=== PATIENT | male | born 1955 | race Caucasian/White ===

== ENCOUNTER → 2016-11-09 11:17 | Outpatient (CLI) | payer OTHER ==
[~2016-11-09] VITALS: Ht 170.2 cm; Wt 82.7 kg
--- NOTE | ~2016-11-09 | HEMODYNAMI ---
PATIENT:EVELYNE KNOTT MEDICAL RECORD: [id number] : 57 LOCATION:[facility] ADMISSION DATE: 11/09/16 Generatedon:11/09/201615:56 Patient name: EVELYNE KNOTT Patient #: [id number] SSN: : 1955 Date of study: 11/09/2016 Page: Of Hemodynamic Procedure Report Patient Data Patient Demographics Procedure consent was obtained First Name: EVELYNE Gender: Male Last Name: NIKOS : 1955 Patient #: [id number] Age: 61 year(s) Race: Unknown Additional ID: [id number] Contact details Address: [address] State: [place] City: [place] Zip code: [address] Admission Admission Data Admission Date: 11/09/2016 Admission Time: 11:17 Procedure Procedure Types Cath Procedure Diagnostic Procedure LHC LHC w/Coronaries Miscellaneous Procedures Moderate Sedation up to 15 minutes Procedure Description Procedure Date Procedure Date: 11/09/2016 Procedure Start Time: 15:39 Procedure End Time: 15:56 Procedure Staff Name Function Jayden Sommers MD Performing Physician Sowmya Hancock RN Nurse Jose Mesa RT Monitor Candido Murillo RT Scrub Procedure Data Cath Procedure Fluoroscopy Diagnostic fluoroscopy Total fluoroscopy Time: 3.6 time: 3.6 min min Diagnostic fluoroscopy Total fluoroscopy dose: 634 dose: 634 mGy mGy Contrast Material Contrast Material Type Amount (ml) Isovue 300 75 Entry Location Entry Primary Successful Side Size Upsize Upsize Entry Closure Robbins ccessful Closure Location (Fr) 1 (Fr) 2 (Fr) Remarks Device Remarks Radial Right 6 Fr Mechanical artery Short Compression Estimated blood loss: 10 ml Diagnostic catheters Device Type Used For End Catheter Placement Terumo 5Fr Tay 110cm Procedure catheter Procedure Complications No complications Procedure Medications Medication Administration Route Dosage Oxygen NC 2 l/min Heparin Flush Bag added to field 2 bags (1000units/500ml NS) Lidocaine 2% added to field 20 Radial Cocktail added to field 1 syringe (Verapomil 2mg/Nitro 400mcg/Heparin 1500units) Versed I.V. 1 mg Fentanyl I.V. 50 mcg Versed I.V. 1 mg Fentanyl I.V. 50 mcg Versed I.V. 1 mg Fentanyl I.V. 50 mcg Radial Cocktail added to field 1 syringe (Verapomil 2mg/Nitro 400mcg/Heparin 1500units) Hemodynamics Rest Heart Rate: 60 (bpm) Pressure Samples Time Site Value (mmHg) Purpose Heart Use Rate(bpm) 15:43 LV 126/-2,8 Snapshot 80 15:46 AO 111/70(88) Snapshot 76 Gradients Valve Time Site Site Mean SEP/DFP Peak To Heart Use 1 2 (mmHg) (sec/min) Peak Rate (mmHg) (bpm) Aortic 15:43 LV AO 64 Snapshots Pre Cath Intra NCS Post Cath Vital Signs Time Heart Resp SPO2 etCO2 [id number] NIBP (mmHg) Rhythm Pain Sedation Rate (ipm) (%) (mmHg) (mmHg) Status Level (bpm) 15:28:09 63 17 100 0 0 150/78(106) NSR 0 (11) 10(A) , No pain 15:32:29 65 13 99 0 0 145/85(116) NSR 0 (11) 10(A) , No pain 15:36:47 62 16 100 0 0 131/82(94) NSR 0 (11) 10(A) , No pain 15:41:03 73 16 100 0 0 109/72(86) NSR 0 (11) 9(A) , No pain 15:45:11 71 15 99 0 0 103/68(87) NSR 0 (11) 9(A) , No pain 15:49:19 79 15 100 0 0 109/65(81) NSR 0 (11) 9(A) , No pain 15:53:25 72 9 100 0 0 127/75(85) NSR 0 (11) 9(A) , No pain Medications Time Medication Route Dose Verified Delivered Reason Notes Effectiveness by by 15:27:18 Oxygen NC 2 l/min Jayden Sowmya Per Matthieu Hancock RN physician 15:27:30 Heparin Flush added 2 bags Jayden Jayden used for Bag to Matthieu Sommers MD procedure (1000units/500ml field NS) 15:27:41 Lidocaine 2% added 20ml Jayden Jayden used for to vial Matthieu Sommers MD procedure field 15:27:51 Radial Cocktail added 1 Jayden Jayden used for (Verapomil to syringe Matthieu Sommers MD procedure 2mg/Nitro field 400mcg/Heparin 1500units) 15:32:03 Versed I.V. 1 mg Jayden Sowmya for sedation Matthieu Hancock RN 15:32:09 Fentanyl I.V. 50 mcg Jayden Sowmya for sedation Matthieu Hancock RN 15:34:13 Versed I.V. 1 mg Jayden Sowmya for sedation Matthieu Hancock RN 15:34:23 Fentanyl I.V. 50 mcg Jayden Sowmya for sedation Matthieu Hancock RN 15:36:30 Versed I.V. 1 mg Jayden Sowmya for sedation Matthieu Hancock RN 15:36:35 Fentanyl I.V. 50 mcg Jayden Sowmya for sedation Matthieu Hancock RN 15:40:24 Radial Cocktail added 1 Jayden Jayden for (Verapomil to syringe Matthieu Sommers MD vasodilation 2mg/Nitro field 400mcg/Heparin 1500units) Procedure Log Time Note 14:55:03 Candido Murillo RT(R) sent for patient. Start room use. 15:16:42 Time tracking: Regular hours 15:16:47 Plan of Care:Hemodynamics will remain stable., Cardiac rhythm will remain stable., Comfort level will be maintained., Respiratory function will remain adequate., Patient/ family verbilizes understanding of procedure., Procedure tolerated without complication., Recovers from procedure without complications.. 15:17:02 Patient received from Pre/Post Procedure Room to CCL 1 Alert and oriented. Tansferred to table in Supine position. 15:17:03 Warm blankets applied, and alma hugger turned on for patient comfort. 15:17:04 Correct patient and procedure confirmed by team. 15:17:05 Signed procedure consent form obtained from patient. 15:17:06 ECG and BP/O2 sat monitors applied to patient. 15:27:04 Vital chart was started 15:27:18 Oxygen 2 l/min NC was administered by Sowmya Hancock RN; Per physician; 15:27:30 Heparin Flush Bag (1000units/500ml NS) 2 bags added to field was administered by Jayden Sommers MD; used for procedure; 15:27:41 Lidocaine 2% 20ml vial added to field was administered by Jayden Sommers MD; used for procedure; 15:27:51 Radial Cocktail (Verapomil 2mg/Nitro 400mcg/Heparin 1500units) 1 syringe added to field was administered by Jayden Sommers MD; used for procedure; 15:29:10 Baseline sample Acquired. 15:29:15 Rhythm: sinus rhythm 15:29:16 Full Disclosure recording started 15:29:24 H&P Date Dictated: 11/01/2016 Within 30 days and on chart., H&P Addendum completed by physician on day of procedure. (MUST COMPLETE FOR ALL OUTPATIENTS). 15:29:25 Pre-procedure instructions explained to patient. 15:29:25 Pre-op teaching completed and patient verbalized understanding. 15:29:27 Family in waiting room. 15:29:30 Patient NPO since Midnight. 15:29:32 Is the patient allergic to Iodine/contrast media? No. 15:29:33 Is patient on blood thinner?Yes 15:29:37 ACC The patient was administered the following blood thiners within the last 24 hours: ACCBrilinta 15:30:46 Patient diabetic? No. 15:30:49 Previous problem with sedation/anesthesia? No ? 15:30:51 Snore? Yes 15:30:53 Sleep apnea? No 15:30:55 Deviated septum? No 15:30:55 Opens mouth fully? Yes 15:30:56 Sticks out tongue? Yes 15:31:01 Airway obstruction? No ? 15:31:03 Dentures? Yes IN 15:31:07 Pre procedure: right dorsailis pedis pulse 1+ Palpable, but thready & weak; easily obliterated 15:31:10 Modified Van's test Ulnar < 7 seconds 15:31:12 Patient pain scale 0/10 ?. 15:31:18 IV patent on arrival in left forearm with 0.9% NaCl at KVO. 15:31:21 Lab results completed and on chart. 15:31:27 Right Radial & Right Groin area was prepped with chlora-prep and draped in sterile fashion 15::29 Alarms reviewed by RBertha N. 15:31:29 Sharps counted by scrub and verified by R.N. 15:: --------ALL STOP TIME OUT------ : Final Timeout: patient, procedure, and site verified with staff and physician. All members of the team are in agreement. 15:31:37 Right Radial & Right Groin site verified by team. 15:31:40 Physical assessment completed. ASA score P 2 - A patient with mild systemic disease as per Jayden Sommers MD. 15:31:43 Sedation plan: IV Moderate Sedation Versed, Fentanyl 15:32:03 Versed 1 mg I.V. was administered by Sowmya Hancock RN; for sedation; 15:32:09 Fentanyl 50 mcg I.V. was administered by Sowmya Hancock RN; for sedation; 15:34:13 Versed 1 mg I.V. was administered by Sowmya Hancock RN; for sedation; 15:34:23 Fentanyl 50 mcg I.V. was administered by Sowmya Hancock RN; for sedation; 15:35:08 Use device set Radial Dx 15:35:11 Tegaderm 4 x 4 opened to sterile field. 15:35:13 Acist Hand Control opened to sterile field. 15:35:13 Acist Manifold opened to sterile field. 15:35:14 Acist Syringe opened to sterile field. 15:35:15 Medline Cath Pack opened to sterile field. 15:35:15 Bag Decanter opened to sterile field. 15:35:15 Terumo 6Fr Slender Glidesheath opened to sterile field. 15:35:16 St Shashank 260cm J .035 wire opened to sterile field. 15:35:16 MBrace Wrist Support opened to sterile field. 15:35:47 Cook 21G 4cm Radial Needle opened to sterile field. 15:36:30 Versed 1 mg I.V. was administered by Sowmya Hancock RN; for sedation; 15:36:35 Fentanyl 50 mcg I.V. was administered by Sowmya Hancock RN; for sedation; 15:38:56 Procedure started. 15:39:01 Local anesthetic to right radial artery with Lidocaine 2% by Jayden Sommers MD.INITIAL ACCESS ONLY 15:40:14 A 6 Fr Short sheath was inserted into the Right Radial artery 15:40:24 Radial Cocktail (Verapomil 2mg/Nitro 400mcg/Heparin 1500units) 1 syringe added to field was administered by Jayden Sommers MD; for vasodilation; 15:40:32 Zero performed for pressure channel P1 15:40:38 Zero performed for pressure channel P1 15:41:04 A Terumo 5Fr Tay 110cm catheter was advanced over the wire and used for Procedure. 15:42:51 LV angiography performed. 15:42:52 LV gram done using ALEXIS 15:43:08 LV hemodynamics recorded. 15:43:12 Injector settings: Ml/sec: 7, Volume: 15, 15:43:20 EF : 55 % 15:44:12 RCA angiography performed. 15:46:49 LCA angiography performed. 15:48:28 Catheter removed. 15:52:07 Terumo TR Band Standard opened to sterile field. 15:53:14 Sheath removed intact; hemostasis achieved with Mechanical Compression to the Right Radial artery. 15:53:21 Procedure ended.(Physican Out) 15:53:59 Fluoroscopy time 03.60 minutes. 15:54:03 Fluoroscopy dose: 634 mGy 15:54:03 Flurop Dose total: 634 15:54:07 Contrast amount:Isovue 300 75ml. 15:54:09 Sharps counted by scrub and verified by R.N. 15:54:11 Insertion/operative site no bleeding no hematoma. 15:54:29 Post-op/insertion site Right Femoral artery dressed using a 4 x 4 and Tegaderm. 15:54:31 Post Procedure Pulses reassessed and unchanged 15:54:34 Post-procedure physical assessment completed. ASA score P 2 - A patient with mild systemic disease as per Jayden Sommers MD. 15:54:36 Post procedure rhythm: unchanged. 15:54:39 Estimated blood loss: 10 ml 15:54:42 Post procedure instruction explained to patient.Patient verbalizes understanding. 15:54:43 Patient needs reinforcement of post procedure teaching. 15:55:11 Procedure Complication : No complications 15:55:28 Procedure and supply charges have been captured, reviewed, submitted and are correct. 15:55:53 Vital chart was stopped 15:55:54 See physician's report for complete and final results. 15:55:58 Report given to Pre/Post Procedure Room. 15:56:02 Patient transfered to Pre/Post Procedure Room with Stretcher. 15:56:04 Procedure ended. 15:56:04 Full Disclosure recording stopped 15:56:25 End room use (Document Last) Device Usage Item Name Manufacture Quantity Catalog Hospital Part Current Minimal Lot# / Number Charge Number Stock Stock Serial# Code Tegaderm 4 1 [id number] [id number] 5 x 4 Acist Hand Acist 1 66434 301011 598946 289701 5 Control [employer] Inc Acist Acist 1 20701 759786 768914 476921 5 Manifold [employer] Inc Acist Acist 1 19769 078380 696094 490368 20 Syringe Medical [employer] Inc Medline Cardinal 1 [id number] 070554 68281 024857 5 Cath Pack Health Bag Microtek 1 2001S 606959 15512 157322 5 Decanter [employer] Inc. Terumo 6Fr Terumo 1 [id number] 600485 698435 [address] St Shashank 1 945936 428750 634496 305579 30 260cm J .035 wire MBrace Advanced 1 [id number] 517668 02865 236008 5 Wrist Vascular Support Dynamics Cook 21G Cook Medical 1 [id number] 989595 731056 257716 5 4cm Radial Needle Terumo 5Fr Terumo 1 40-4280 040683 836276 487373 5 Tay 110cm catheter Terumo TR Terumo 1 [id number] 682344 037757 804802 40 Band Standard Signature Audit Roxie Stage Time Signature Unsigned Intra-Procedure 11/09/2016 Jose Mesa 3:56:43 PM RT(R) Signatures Monitor : Jose Mesa RT Signature : Date : Time : [facility] [address] [place] [address]
[~2016-11-09 11:17] MED LIST: BAYER CHEWABLE81 MG PO; BRILINTA90 MG PO; LIPITOR80 MG PO; LISINOPRIL10 MG PO; PREVACID30 MG PO; RANEXA500 MG PO
[2016-11-09 11:37] VITALS: BP 146/77; Ht 170.2 cm; Wt 82.7 kg
[2016-11-09 11:53] LABS: BASOPHILS 0.7 % (0-2); EOSINOPHILS 3.4 % (0-7); HEMATOCRIT 46.5 % (42.0-54.0); HEMOGLOBIN 15.1 g/dL (13.5-17.5); IMMATURE GRANULOCYTES 0.1 % (0-5); LYMPHOCYTES 27.3 % (15-50); MCH 28.9 pg (26.0-34.0); MCHC 32.5 g/dL (31.0-37.0); MCV 88.9 fL (80.0-100.0); MEAN PLATELET VOLUME 10.8 fL (7.4-10.4); MONOCYTES 8.7 % (2-11); NEUTROPHILS 59.8 % (40-80); PLATELET COUNT 227 10x3/uL (130-400); RBC 5.23 10x6/uL (4.20-6.10); RDW 13.4 % (11.5-14.5); WBC 8.6 10x3/uL (4.8-10.8)
[2016-11-09 12:15] LABS: CALC OSMOLALITY 278 mosm/kg (275-300); CALCIUM 9.1 mg/dL (8.5-10.1); CARBON DIOXIDE 31.5 mmol/L (21.0-32.0); CHLORIDE - SERUM 104 mmol/L (98-107); CREATININE - SERUM 0.9 mg/dL (0.6-1.3); GLUCOSE 94 mg/dL (74-106); POTASSIUM - SERUM 3.7 mmol/L (3.5-5.1); SODIUM 140 mmol/L (136-145); UREA NITROGEN 13 mg/dL (7-18); eGFR NON AFRICAN AMERICAN > 90 mL/min (90-120)
--- NOTE | 2016-11-09 16:15 | NUR ---
1615 RECIEVED TO ROOM WITH TR BAND TO R/WRIST CDI NO BLEEDING NO HEMATOMA NOTED. VSS WITH CHEST PAIN DENIED FAMILY AT SIDE 1645 VSS WITH NO DISTRESS NOTED PATIENT IS SLEEPING QUIETLY WITH EYES CLOSED FAMILY AT SIDE TR BAND REMAINS TO R/WRIST CDI NO BLEEDING NO HEMATOMA NOTED 1700 REPOSITIONED TO SITTING WITH HOB UP 45 DEGREES VSS TR BAND REMAINS CDI. SANDWICH AND SODA TO BEDSIDE
--- NOTE | 2016-11-09 17:54 | NUR ---
2 CC AIR REMOVED FROM TR BAND WITH NO BLEEDING NO HEMATOMA NOTED. PIV REMOVED WITH DRESSING APPLIED. PATIENT UP TO GET DRESSED FOR DISCHARGE HOME
--- NOTE | 2016-11-09 17:55 | NUR ---
VERBAL AND WRITTEN DISCHARGE RALPH OVER WITH PATIENT AND BOTH VERBALIZED UNDERSTANDING. TR BAND REMOVED WITH DRESSING APPLIED NO BLEEDING NO HEMATOMA NOTED. LEFT VIA WC TO PARKING FOR TRANSPORT HOME
--- NOTE | 2016-11-10 10:59 | OP ---
PATIENT NAME: EVELYNE KNOTT MEDICAL RECORD: [id number] :57 LOCATION:D[facility] ADMISSION DATE: SURGEON: DOTTIE MAN M.D. DATE OF OPERATION: 11/09/2016 REFERRING PHYSICIAN: Dr. Gómez Quintana. PROCEDURES PERFORMED: 1. Selective coronary angiography. 2. Left heart catheterization with ventriculogram. INDICATION: A 61-year-old gentleman with history of coronary artery disease, who presents with accelerating angina. EQUIPMENT USED: A 5-Setswana Tay catheter. TECHNIQUE: A 5-Setswana sheath was inserted in retrograde fashion in the right radial artery. Next, selective coronary angiography was performed in standard views using 5-Setswana Tay catheter. Left heart catheterization was performed using Tay catheter as well. CORONARY ANATOMY: 1. Left main: Left main trunk is moderate in caliber. It gives rise to the LAD and circumflex. There is no obstruction. 2. LAD: This is a moderate-caliber vessel extending to the apex. The proximal vessel has been stented. The stent appears patent. There is some mild restenosis seen in the mid stent, but nothing more than 20%. The first diagonal branch has been stented. The stent is widely patent. 3. Circumflex: This vessel is moderate to large in caliber. Mid vessel has been stented. The stent is widely patent. 4. Right coronary: This vessel is moderate in caliber and nondominant. The proximal mid vessel has been stented. The stents are widely patent. 5. Left ventricle: Left ventricle is normal in size and function. No wall motion abnormalities are noted. Estimated ejection fraction is 55%. IMPRESSION: 1. Widely patent stents in the left anterior descending, circumflex and right coronary artery. 2. Normal left ventricular function. RECOMMENDATIONS: I will likely stop his Brilinta at this time as this may be causing some shortness of breath. If he still has symptoms after stopping the Brilinta, consider stress testing. TRANSINT:[id number] Voice Confirmation ID: [id number] DOCUMENT ID: [id number] DOTTIE MAN M.D. at 1059 CC: [id number] DICTATION DATE: 11/09/16 1558 DAIRY CLERK: 11/09/16 1633 DEP CLI 11/09/16 [address] [facility] [address]
== END | disposition home or self-care (01) ==
LOC: D.CATH 11:17
PROVIDERS: Internal Medicine Cardiovascular Disease
DX: I25.10 Atherosclerotic heart disease of native coronary artery without angina pectoris (principal); I65.21 Occlusion and stenosis of right carotid artery; E78.5 Hyperlipidemia, unspecified; I10 Essential (primary) hypertension; K21.9 Gastro-esophageal reflux disease without esophagitis; Z01.812 Encounter for preprocedural laboratory examination

== ENCOUNTER 2017-12-20 10:48 | Outpatient (CLI) | payer OTHER ==
[~2017-12-20] VITALS: Ht 170.2 cm; Wt 84.1 kg
--- NOTE | ~2017-12-20 | HEMODYNAMI ---
PATIENT:EVELYNE KNOTT MEDICAL RECORD: [id number] : 57 LOCATION:[facility] ADMISSION DATE: 12/20/17 Generatedon:12/20/201714:20 Patient name: EVELYNE KNOTT Patient #: [id number] SSN: : 1955 Date of study: 12/20/2017 Page: Of Hemodynamic Procedure Report Patient Data Patient Demographics Procedure consent was obtained First Name: EVELYNE Gender: Male Last Name: NIKOS : 1955 Middle Initial: RAY Age: 62 year(s) Patient #: [id number] Race: Unknown Additional ID: [id number] Contact details [address]: [address] [place] [address] State: [place] City: [place] Zip code: [address] Admission Admission Data Admission Date: 12/20/2017 Admission Time: 10:48 Procedure Procedure Types Cath Procedure Diagnostic Procedure LHC LHC w/Coronaries PCI Procedure PTCA PTCA Initial Peripheral Cath Diagnostic Procedure Cath Peripheral Jmhzj-Ymbzfdu-Wwu-Off Procedure Description Procedure Date Procedure Date: 12/20/2017 Procedure Start Time: 13:51 Procedure End Time: 14:18 Procedure Staff Name Function Jayden Lewis MD Performing Physician Cassandra Valencia RT Monitor Linda Prasad RT Scrub Quita Mcbride RN Nurse Procedure Data Cath Procedure Fluoroscopy Diagnostic fluoroscopy Total fluoroscopy Time: 5 time: 5 min min Diagnostic fluoroscopy Total fluoroscopy dose: 947 dose: 947 mGy mGy Contrast Material Contrast Material Type Amount (ml) Isovue 300 144 Entry Location Entry Primary Successful Side Size Upsize Upsize Entry Closure Succes sful Closure Location (Fr) 1 (Fr) 2 (Fr) Remarks Device Remarks Femoral Right 5 Fr 6 Fr Exoseal artery Short Estimated blood loss: 5 ml Diagnostic catheters Device Type Used For End Catheter Placement MULTIPACK JL 4.0 5Fr Left Coronary catheter Angiography MULTIPACK 3DRC 5Fr Right Coronary catheter Angiography MULTIPACK Pigtail 5 Fr LV Angiography catheter Procedure Complications No complications Procedure Medications Medication Administration Route Dosage Oxygen NC 2 l/min Lidocaine 1% added to field 20 Heparin Flush Bag added to field 2 bags (1000units/500ml NS) 0.9% NaCl I.V. 100 ml/hr Versed I.V. 1 mg Fentanyl I.V. 50 mcg Versed I.V. 1 mg Fentanyl I.V. 50 mcg Fentanyl I.V. 50 mcg Fentanyl I.V. 50 mcg Heparin Bolus I.V. 8500 units Plavix P.O. 600 mg Hemodynamics Rest Heart Rate: 61 (bpm) Pressure Samples Time Site Value (mmHg) Purpose Heart Use Rate(bpm) 14:00 LV 150/-8,29 Snapshot 78 14:01 AO 127/68(94) Pullback 71 14:01 LV 150/-3,11 Pullback 71 Gradients Valve Time Site 1 Site 2 Mean SEP/DFP Peak To Heart Use (mmHg) (sec/min) Peak Rate (mmHg) (bpm) Aortic 14:01 LV AO 10 22 23 71 150/-3,11 127/68(94) Calculations Valve P-P Mean Valve Index Valve Source Name Gradient Area Flow (cm2) Aortic 23 10 23 10 Snapshots Pre Cath Intra NCS Post Cath Vital Signs Time Heart Resp SPO2 etCO2 NIBP (mmHg) Rhythm Pain Sedation Rate (ipm) (%) (mmHg) Status Level (bpm) 13:36:33 60 16 98 36.7 135/80(122) NSR 0 (11) 10(A) , No pain 13:40:49 65 19 97 0 114/67(84) NSR 0 (11) 10(A) , No pain 13:44:59 62 14 100 37.4 110/68(89) NSR 0 (11) 10(A) , No pain 13:49:09 59 15 99 0 122/66(86) NSR 0 (11) 10(A) , No pain 13:53:25 60 22 100 0 103/59(78) NSR 0 (11) 9(A) , No pain 13:57:29 65 17 99 30.7 121/74(105) NSR 0 (11) 9(A) , No pain 14:01:43 79 14 99 37.4 113/66(99) NSR 0 (11) 9(A) , No pain 14:05:55 73 16 99 42.6 114/61(88) NSR 0 (11) 9(A) , No pain 14:10:05 73 14 99 40.4 117/73(99) NSR 0 (11) 9(A) , No pain 14:14:17 78 15 99 29.2 111/61(76) NSR 0 (11) 9(A) , No pain 14:18:26 70 16 100 38.9 118/70(94) NSR 0 (11) 10(A) , No pain Medications Time Medication Route Dose Verified Delivered Reason Notes Effectiveness by by 13:38:18 Oxygen NC 2 Jayden Buffie used for l/min Matthieu Mcbride RN procedure 13:38:26 Lidocaine 1% added 20ml Jayden Jayden for local to vial Matthieu Lewis MD anesthetic field 13:38:32 Heparin Flush added 2 Jayden Jayden used for Bag to bags Matthieu Lewis MD procedure (1000units/500ml field NS) 13:38:42 0.9% NaCl I.V. 100 Jayden Buffie Per physician ml/hr Matthieu Mcbride RN 13:38:53 Versed I.V. 1 mg Jayden Buffie for sedation Matthieu Mcbride RN 13:38:59 Fentanyl I.V. 50 Jayden Buffie for sedation mcg Matthieu Mcbride RN 13:48:14 Versed I.V. 1 mg Jayden Buffie for sedation Matthieu Mcbride RN 13:48:18 Fentanyl I.V. 50 Jayden Buffie for sedation mcg Matthieu Mcbride RN 13:51:39 Fentanyl I.V. 50 Jayden Buffie for sedation mcg Matthieu Mcbride RN 14:08:26 Fentanyl I.V. 50 Jayden Buffie for sedation mcg Matthieu Mcbride RN 14:10:25 Heparin Bolus I.V. 8500 Jayden Buffie for verifi ed units Matthieu Mcbride RN anticoagulation with dr lewis 14:17:47 Plavix P.O. 600 Jayden Buffie for mg Matthieu Mcbride RN antiplatelet therapy Procedure Log Time Note 13:16:58 Diagnostic Cath Status : Elective 13:17:17 Quita Mcbride RN sent for patient. Start room use. 13:17:18 Time tracking: Regular hours (M-F 7:00 - 5:00) 13:17:23 Plan of Care:Hemodynamics will remain stable., Cardiac rhythm will remain stable., Comfort level will be maintained., Respiratory function will remain adequate., Patient/ family verbilizes understanding of procedure., Procedure tolerated without complication., Recovers from procedure without complications.. 13:26:20 Patient received from Pre/Post Procedure Room to CCL 2 Alert and oriented. Tansferred to table in Supine position. 13:26:22 Warm blankets applied, and alma hugger turned on for patient comfort. 13:26:22 Correct patient and procedure confirmed by team. 13:26:24 Signed procedure consent form obtained from patient. 13:26:24 ECG and BP/O2 sat monitors applied to patient. 13:35:31 Baseline sample Acquired. 13:35:31 Vital chart was started 13:35:36 Rhythm: sinus rhythm 13:35:38 Full Disclosure recording started 13:35:53 H&P Date Dictated: 12/20/2017 Within 30 days and on chart., H&P Addendum completed by physician on day of procedure. (MUST COMPLETE FOR ALL OUTPATIENTS). 13:35:55 Pre-procedure instructions explained to patient. 13:35:56 Pre-op teaching completed and patient verbalized understanding. 13:35:57 Family in waiting room. 13:35:58 Patient NPO since Midnight. 13:36:04 Is the patient allergic to Iodine/contrast media? No. 13:36:05 Was the patient premedicated? No 13:36:07 Is patient on blood thinner?No 13:36:08 Patient diabetic? No. 13:36:10 Previous problem with sedation/anesthesia? No ? 13:36:12 Snore? Yes 13:36:13 Sleep apnea? No 13:36:14 Deviated septum? No 13:36:21 Opens mouth fully? Yes 13:36:22 Sticks out tongue? Yes 13:36:24 Airway obstruction? No ? 13:36:26 Dentures? No ? 13:36:31 Pre procedure: right dorsailis pedis pulse 2+ Normal; easily identifiable; not easily obliterated 13:36:33 Pre procedure: left dorsailis pedis pulse 2+ Normal; easily identifiable; not easily obliterated 13:36:40 Patient pain scale 0/10 ?. 13:36:46 IV patent on arrival in left forearm with 0.9% NaCl at O. 13:36:48 Lab results completed and on chart. 13:36:52 Bilateral groins area was prepped with chlora-prep and draped in sterile fashion 13:36:54 Alarms reviewed by R. N. 13:36:54 Sharps counted by scrub and verified by R.N. 13:36:55 Physician arrived 13:36:55 --------ALL STOP TIME OUT------ 13:36:56 Final Timeout: patient, procedure, and site verified with staff and physician. All members of the team are in agreement. 13:36:58 Bilateral groins site verified by team. 13:37:01 Physical assessment completed. ASA score P 2 - A patient with mild systemic disease as per Jayden Lewis MD. 13:37:05 Sedation plan: IV Moderate Sedation Medication:Versed, Fentanyl 13:37:11 Use device set Femoral Dx 13:37:12 ACIST Syringe (38699) opened to sterile field. 13:37:12 Bag Decanter (2002S) opened to sterile field. 13:37:12 Medline Cath Pack ([id number]) opened to sterile field. 13:37:13 DIAGNOSTIC WIRE .035 260cm J wire (971607) opened to sterile field. 13:37:15 ACIST Hand Control (02864) opened to sterile field. 13:37:15 ACIST Manifold (92849) opened to sterile field. 13:37:16 DIAGNOSTIC Multipack 5Fr catheter set (GB6748) opened to sterile field. 13:37:16 Tegaderm 4 x 4 (1626W) opened to sterile field. 13:37:19 SHEATH Prelude 5Fr 0.035 (HMI-0C-60-035) opened to sterile field. 13:38:18 Oxygen 2 l/min NC was administered by Quita Mcbride RN; used for procedure; 13:38:26 Lidocaine 1% 20ml vial added to field was administered by Jayden Lewis MD; for local anesthetic; 13:38:32 Heparin Flush Bag (1000units/500ml NS) 2 bags added to field was administered by Jayden Lewis MD; used for procedure; 13:38:42 0.9% NaCl 100 ml/hr I.V. was administered by Quita Mcbride RN; Per physician; 13:38:53 Versed 1 mg I.V. was administered by Quita Mcbride RN; for sedation; 13:38:59 Fentanyl 50 mcg I.V. was administered by Quita Mcbride RN; for sedation; 13:46:46 Zero performed for pressure channel P1 13:48:14 Versed 1 mg I.V. was administered by Quita Mcbride RN; for sedation; 13:48:18 Fentanyl 50 mcg I.V. was administered by Quita Mcbride RN; for sedation; 13:51:32 Procedure started. 13:51:39 Fentanyl 50 mcg I.V. was administered by Quita Mcbride RN; for sedation; 13:51:41 Local anesthetic to right femoral artery with Lidocaine 2% by Jayden Lewis MD.INITIAL ACCESS ONLY 13:54:02 A 5 Fr sheath was inserted into the Right Femoral artery 13:55:02 A MULTIPACK JL 4.0 5Fr catheter was advanced over the wire and used for Left Coronary Angiography. 13:55:36 LCA angiography performed. 13:55:39 Injector settings: Ml/sec: 3, Volume: 6, 13:56:22 Catheter removed. 13:56:36 A MULTIPACK 3DRC 5Fr catheter was advanced over the wire and used for Right Coronary Angiography. 13:58:00 RCA angiography performed. 13:58:03 Injector settings: Ml/sec: 3, Volume: 6, 13:59:53 Catheter removed. 14:00:06 A MULTIPACK Pigtail 5 Fr catheter was advanced over the wire and used for LV Angiography. 14:00:43 LV hemodynamics recorded. 14:00:44 LV gram done using ALEXIS 14:00:47 Injector settings: Ml/sec: 5, Volume: 15, 14:00:57 EF : 60 % 14:01:35 Abdominal angiogram w/ runoff was performed. 14:02:26 Injector settings: Ml/sec: 10, Volume: 20, 14:05:33 Catheter removed. 14:05:34 Proceeding to intervention. 14:05:53 SHEATH 6Fr Prelude ([id number]) opened to sterile field. 14:05:54 INFLATOR Merit BasixCompak (RY4616) opened to sterile field. 14:05:55 BMW 300cm [place] 2 J wire ([id number]) opened to sterile field. 14:05:59 TUBING High Pressure Extension Tubing (Matthieu) (AL0349X) opened to sterile field. 14:06:41 GUIDE 6FR EBU 3.75 catheter ([id number]) opened to sterile field. 14:07:10 Sheath upsized to a 6 Fr Short. 14:07:24 6 Fr ebu 3.75 guide catheter was inserted over the wire 14:08:26 Fentanyl 50 mcg I.V. was administered by Quita Mcbride RN; for sedation; 14:09:15 bmw wire advanced. 14:10:25 Heparin Bolus 8500 units I.V. was administered by Quita Mcbride RN; for anticoagulation; verified with dr lewis 14:14:02 Inflate balloon Inflation number: 1 A EMERGE OTW 3.5 x 15 balloon ([id number]) was prepped and advanced across the Mid CX, then inflated to 12 ALPESH for 0:30 (min:sec). 14:15:02 Inflation number: 2 The EMERGE OTW 3.5 x 15 balloon ([id number]) was reinflated across the Mid CX, to 12 ALPESH for 0:30 (min:sec). 14:15:31 Balloon removed over the wire. 14:15:31 Wire removed. 14:15:32 Guide catheter removed. 14:15:40 EXOSEAL 6Fr (EX600) opened to sterile field. 14:16:03 Sheath removed intact; hemostasis achieved with Exoseal to the Right Femoral artery. 14:16:05 Procedure ended.(Physican Out) 14:16:36 Fluoroscopy time 05.00 minutes. 14:16:49 Flurop Dose total: 947 14:16:49 Fluoroscopy dose: 947 mGy 14:16:53 Contrast amount:Isovue 300 144ml. 14:17:00 Post-op/insertion site Right Femoral artery dressed using a 4 x 4 and Tegaderm. 14:17:03 Post right femoral artery:stable 14:17:05 Post Procedure Pulses reassessed and unchanged 14:17:08 Post procedure rhythm: unchanged. 14:17:10 Estimated blood loss: 5 ml 14:17:12 Post procedure instruction explained to patient.Patient verbalizes understanding. 14:17:12 Patient needs reinforcement of post procedure teaching. 14:17:32 Procedure type changed to Cath procedure, Diagnostic procedure, LHC, LHC w/Coronaries, PCI procedure, PTCA, PTCA Initial, Peripheral Cath Diagnostic Procedure, Cath Peripheral, Yqxrg-Jjurvcl-Uph-Off 14:17:33 Procedure and supply charges have been captured, reviewed, submitted and are correct. 14:17:38 Procedure Complication : No complications 14:17:40 Vital chart was stopped 14:17:40 See physician's report for complete and final results. 14:17:43 Report given to Pre/Post Procedure Room. 14:17:47 Plavix 600 mg P.O. was administered by Quita Mcbride RN; for antiplatelet therapy; 14:18:06 Patient transfered to Pre/Post Procedure Room with Stretcher. 14:18:08 Procedure ended. 14:18:08 Full Disclosure recording stopped 14:18:14 ACC-PCI Only Patient was given prescriptions, or instructed by Jayden Lewis MD to start/continue the following medications upon discharge: Plavix 14:18:16 End room use (Document Last) Intervention Summary Intervention Notes Time ActionType Lesion and Equipment Action# Pressure Duration Attributes Used 14:14:02 Inflate Mid CX EMERGE OTW 1 12 00:30 balloon 3.5 x 15 balloon ([id number]) 14:15:02 Reinflate Mid CX EMERGE OTW 2 12 00:30 balloon 3.5 x 15 balloon ([id number]) Device Usage Item Name Manufacture Quantity Catalog Number Hospital Part Current Minimal Lot# / Charge Number Stock Stock Serial# Code ACIST Syringe Acist 1 50065 834163 772946 805879 20 (41578) Medical Systems Inc Bag Decanter Microtek 1 2001S 890268 86297 115447 5 (2001S) Medical Inc. Medline Cath Cardinal 1 [id number] 994884 76136 867960 5 Pack Health ([id number]) DIAGNOSTIC WIRE St Shashank 1 652040 523923 157249 058147 30 .035 260cm J wire (029711) ACIST Hand Acist 1 98679 666506 191811 870499 5 Control (90820) Medical Systems Inc ACIST Manifold Acist 1 95062 045686 407554 808320 5 (56190) Medical Systems Inc DIAGNOSTIC Cardinal 1 OG3663 696511 55939 493184 30 Multipack 5Fr Health catheter set (IZ6497) Tegaderm 4 x 4 3M 1 1626W 270657 955894 338410 5 (1626W) SHEATH Prelude Merit 1 OHG-6S-77035 918974 134886 425216 5 5Fr 0.035 Medical (DBO-2U-74-035) MULTIPACK JL Cardinal 1 399782 5 4.0 5Fr Health catheter MULTIPACK 3DRC Cardinal 1 724355 5 5Fr catheter Health MULTIPACK Cardinal 1 440075 5 Pigtail 5 Fr Health catheter SHEATH 6Fr Merit 1 [id number] 409851 148042 186437 5 Prelude Medical ([id number]) INFLATOR Merit Merit 1 AI5172 337562 089605 704289 15 BasixCompak Medical (CA3598) BMW 300cm [place] 1 [id number] 721401 563218 168208 5 [place] 2 J Vascular wire ([id number]) TUBING High Merit 1 [id number] 187551 02130 554589 10 Pressure Medical Extension Tubing (Lewis) (SS3381E) GUIDE 6FR EBU Medtronic 1 [id number] 990966 82484 829214 1 3.75 catheter ([id number]) EMERGE OTW 3.5 [place] 1 [id number] 083449 335591 090864 5 [id number] x 15 balloon Scientific ([id number]) EXOSEAL 6Fr Cardinal 1 EX600 603728 925683 665570 10 (EX600) Health Signature Audit Sneads Stage Time Signature Unsigned Intra-Procedure 12/20/2017 Cassandra Valencia 2:20:45 PM RT(R) Signatures Monitor : Cassandra Valencia RT Signature : Date : Time : [facility] [address] [place] [address]
[2017-12-20 11:33] VITALS: BP 132/72; Ht 170.2 cm; Wt 84.1 kg
[2017-12-20 11:47] LABS: BASOPHILS 0.2 % (0-2); EOSINOPHILS 2.6 % (0-7); HEMATOCRIT 47.6 % (42.0-54.0); HEMOGLOBIN 16.4 g/dL (13.5-17.5); IMMATURE GRANULOCYTES 0.3 % (0-5); LYMPHOCYTES 29.4 % (15-50); MCHC 34.5 g/dL (31.0-37.0); MONOCYTES 7.1 % (2-11); NEUTROPHILS 60.4 % (40-80); PLATELET COUNT 245 10x3/uL (130-400); RBC 5.47 10x6/uL (4.20-6.10); RDW 12.5 % (11.5-14.5); WBC 9.2 10x3/uL (4.8-10.8)
[2017-12-20 12:01] LABS: CALC OSMOLALITY 275 mosm/kg (275-300); CARBON DIOXIDE 31.7 mmol/L (21.0-32.0); CHLORIDE - SERUM 102 mmol/L (98-107); CREATININE - SERUM 0.8 mg/dL (0.6-1.3); GLUCOSE 93 mg/dL (74-106); POTASSIUM - SERUM 4.4 mmol/L (3.5-5.1); SODIUM 138 mmol/L (136-145); UREA NITROGEN 12 mg/dL (7-18); eGFR NON AFRICAN AMERICAN > 90 mL/min (90-120)
[2017-12-20] MEDS ORDERED: PLAVIX75 MG PO (14:34)
== END 2017-12-20 18:30 | disposition home or self-care (01) ==
LOC: D.CATH 10:48
PROVIDERS: Internal Medicine Cardiovascular Disease
DX: I25.119 Atherosclerotic heart disease of native coronary artery with unspecified angina pectoris (principal); T82.855A Stenosis of coronary artery stent, initial encounter; Z01.812 Encounter for preprocedural laboratory examination

== ENCOUNTER → 2018-10-11 10:23 | Outpatient (CLI) | payer OTHER ==
[2017-12-20 11:33] VITALS: BMI 29.0
[~2018-10-11 10:23] MED LIST changes: +PLAVIX75 MG PO
== END | disposition home or self-care (01) ==
LOC: D.HCCARDIO 10:23
PROVIDERS: ATTEND Internal Medicine Cardiovascular Disease
DX: I25.10 Atherosclerotic heart disease of native coronary artery without angina pectoris (principal)

== ENCOUNTER → 2018-11-05 09:27 | Outpatient (CLI) | payer OTHER ==
[2017-12-20 11:33] VITALS: BMI 29.0
--- NOTE | 2018-11-07 10:39 | ST ---
PATIENT:EVELYNE KNOTT MEDICAL RECORD: [id number] SEX: M LOCATION:[facility] ORDER #: ADMISSION DATE: 11/05/18 AGE OF PATIENT: 63 REFERRING PHYSICIAN: INTERPRETING PHYSICIAN: JOANNA HENLEY MD DATE OF SERVICE: 11/05/2018 Nuclear Stress Test INDICATIONS: Angina and coronary artery disease and hypertension. He was exercised on standard Lexiscan protocol with 28 mCi of sestamibi injected at peak stress, 8 mCi was used previously for rest images. FINDINGS: Gated SPECT reveals a preserved ejection fraction at 62% with good wall motion and thickening and brightening throughout all segments. SPECT IMAGING: Cardiolite was used as myocardial fusion agent. There is reversibility anteriorly, this includes basal, mid, apical, and anterior segments. The degree of reversibility is mild. The amount of myocardium involved is moderate. OVERALL IMPRESSION: 1. Abnormal nuclear stress test with anterior inducible ischemia. 2. Gated SPECT reveals preserved ejection fraction of greater than 60%. In this patient with ongoing symptomatology, the current scan does suggest the presence of hemodynamically significant coronary artery disease. We will proceed with coronary angiography as followup study. TRANSINT:[id number] Voice Confirmation ID: [id number] DOCUMENT ID: [id number] JOANNA HENLEY MD at 1039 CC: [id number] DICTATION DATE: 11/05/18 1601 MANAGER RETIREMENT: 11/06/18 0552 [facility] CLI 11/05/18 [address] [place] [address]
== END | disposition home or self-care (01) ==
LOC: D.HCCARDIO 09:27
PROVIDERS: ATTEND Internal Medicine Cardiovascular Disease
DX: I65.23 Occlusion and stenosis of bilateral carotid arteries (principal)

== ENCOUNTER → 2018-11-07 16:53 | Outpatient (CLI) | payer OTHER ==
[2017-12-20 11:33] VITALS: BMI 29.0
[~2018-11-07 16:53] MED LIST changes: +HYDROCHLOROTHIA25 MG PO; +[UNRECOGNIZED DRUG - REMARK]
[2018-11-07 18:43] LABS: CHOL - HDL RATIO 3.2 ratio (2.3-4.9)
== END | disposition home or self-care (01) ==
LOC: D.LABREF 16:53
PROVIDERS: ATTEND Internal Medicine Cardiovascular Disease
DX: E78.5 Hyperlipidemia, unspecified (principal)

== ENCOUNTER 2018-11-11 09:04 | Observation (INO) | payer OTHER ==
[~2018-11-11] VITALS: Ht 170.2 cm; Wt 89.5 kg
--- NOTE | ~2018-11-11 | OP ---
PATIENT NAME: EVELYNE KNOTT MEDICAL RECORD: [id number] :57 LOCATION:D.M2 D.2114 ADMISSION DATE:11/11/18 SURGEON: JOANNA HENLEY MD DATE OF OPERATION: 11/12/2018 PROCEDURES: 1. PTCA stent RCA. 2. IFR. 3. Left heart catheterization. 4. Selective coronary angiography. 5. Left ventriculogram. INDICATION: Unstable angina, coronary artery disease, hypertension, hyperlipidemia. PROCEDURE IN DETAIL: After informed consent was obtained and after a detailed description of risks, benefits, as well as alternative therapies, the patient elected to proceed with angiogram and angioplasty. The right radial area was prepped and draped in normal sterile fashion. Right radial artery was cannulated via modified Seldinger technique with placement of 6-Bulgarian sheath. All catheters exchanged through this sheath. FINDINGS: The left ventriculogram was performed in standard 30-degree ALEXIS view, reveals good cardiac wall motion throughout all segments. Overall ejection fraction estimated 60%. SELECTIVE CORONARY ANGIOGRAPHY: 1. Left main is with no significant angiographic disease. 2. Left anterior descending has previously placed stents in the LAD and diagonal. There is no significant restenosis. No disease elsewise throughout the LAD or its branches. 3. The left circumflex has mild irregularities, but no flow-limiting stenosis. 4. The right coronary artery has previously placed stent at the ostium that appears to be 70% to 80% stenosed with in-stent restenosis and IFR is significantly abnormal. PTCA STENT OF THE RCA: The stent used was a 3.0 x 15 mm [place]. Result was 0% residual stenosis. OVERALL IMPRESSION: Successful percutaneous transluminal coronary angioplasty stent of the right coronary artery going from 80% initial stenosis to 0% residual. TRANSINT:[id number] Voice Confirmation ID: [id number] DOCUMENT ID: [id number] JOANNA HENLEY MD CC: [id number] DICTATION DATE: 11/12/18 1116 [place] CLASSIFIER TENDER: 11/12/18 1248 ADM IN [id number] [place] [address]
--- NOTE | ~2018-11-11 | CN ---
PATIENT NAME:EVELYNE ALLISON MEDICAL RECORD: [id number] : 57 LOCATION:. D.2114 ADMIT DATE: 11/11/18 ACCOUNT: [id number] CONSULTING PHYSICIAN: JOANNA HENLEY MD REFERRING PHYSICIAN: ABIGAIL CHAN MD DATE OF CONSULTATION: 11/11/2018 DIAGNOSES: 1. Unstable angina. 2. Coronary artery disease. 3. Previous percutaneous transluminal coronary angioplasty stent. 4. Hypertension. 5. Hyperlipidemia. HISTORY OF PRESENT ILLNESS: Mr. Allison presents with 1 week of increasing chest pain. He was seen in our office. He had the addition of Ranexa to his medical regimen. He is status post PTCA stent approximately 1 year ago. The chest pain has escalated dramatically since he has been in our office even with the addition of Ranexa. He has taken multiple sublingual nitro has had multiple episodes of chest pain and recurrent chest pain, especially the last night. PHYSICAL EXAMINATION: GENERAL APPEARANCE: Well-nourished, well-developed, appears stated age. Level of distress, comfortable. PSYCHIATRIC: Mental status, alert, normal affect. Orientation, oriented to time, place and person. EYES: Lids and conjunctiva, noninjected. No discharge, no pallor. ENT: Lips, teeth, gums, normal dentition. Oropharynx, no cyanosis, no pallor. NECK: Carotid arteries, bilateral normal upstroke, no bruits, no thrills. JUGULAR VEINS: No jugular venous pressure or distention. CERVICAL LYMPH NODES: Nontender, nonenlarged. THYROID: Not enlarged. Nontender. No nodules. LUNGS: Respiratory effort, unlabored. CHEST: Normal curvature. No thoracic deformity. No chest wall tenderness. Percussion, resonant. Auscultation, clear. No wheezes, no rales, no rhonchi. CARDIOVASCULAR: Precordial exam, nondisplaced. No heaves or pericardial thrills. Rate and rhythm, regular. Heart sounds, normal S1, normal S2. No S3, no gallop, no rub. Systolic murmur, not heard. Diastolic murmur, not heard. EXTREMITIES: No cyanosis, no edema. Peripheral pulses, full and equal in all extremities, except as noted. No bruits appreciated. ABDOMEN: Soft, nondistended. Normal aorta. No bruit. Nontender. No masses. Liver, nontender, no hepatomegaly. Spleen, nontender, no splenomegaly. MUSCULOSKELETAL: No joint tenderness. No joint swelling. No erythema. NEUROLOGICAL: Normal gait, normal strength, normal tone. SKIN: Warm and dry. OVERALL IMPRESSION: He is on optimal medical management with heart rate in the 60s. Systolic blood pressure in the 110 range, on СЕРГЕЙ inhibitor, Ranexa, nitrates and continues to have progression of his symptomatology in an unstable fashion in this patient with a past history of him regarding significant coronary artery disease and cardiac intervention. We will proceed with coronary angiography in the a.m. Further care depends upon the findings of the angiography. TRANSINT:[id number] Voice Confirmation ID: [id number] DOCUMENT ID: [id number] CONSULT REPORT [id number] EVELYNE ALLISON JEFFREY MD CC: [id number] DICTATION DATE: 11/11/181107 DIRECTOR OF INFECTION CONTROL: 11/11/181940 ADM IN [facility] [address] [id number]
--- NOTE | ~2018-11-11 | HEMODYNAMI ---
PATIENT:EVELYNE KNOTT MEDICAL RECORD: [id number] : 57 LOCATION:[facility] D.2114 ADMISSION DATE: 11/11/18 Generatedon:11/12/201811:14 Patient name: EVELYNE KNOTT Patient #: [id number] SSN: : 1955 Date of study: 11/12/2018 Page: Of Hemodynamic Procedure Report Patient Data Patient Demographics Procedure consent was obtained First Name: EVELYNE Gender: Male Last Name: NIKOS : 1955 Middle Initial: RAY Age: 63 year(s) Patient #: [id number] Race: Unknown Additional ID: [id number] Contact details [address]: [address] [place] [address] State: [place] City: [place] Zip code: [address] Admission Admission Data Admission Date: 11/11/2018 Admission Time: 10:39 Room #: D.2114 Lab Results Lab Result Date: 11/12/2018 Lab Result Time: 0:00 Biochemistry Name Units Result Min Max BUN mg/dl 10 --(-*--)-- 7 18 Creatinine mg/dl 0.9 --(-*--)-- 0.6 1.3 CBC Name Units Result Min Max Hemoglobin g/dl 14.9 --(-*--)-- 13.5 17.5 Procedure Procedure Types Cath Procedure Diagnostic Procedure [facility] w/Coronaries FFR/IVUS FFR Initial Sedation Charges Moderate Sedation up to 15 minutes PCI Procedure Coronary Stent Coronary Stent Initial Procedure Description Procedure Date Procedure Date: 11/12/2018 Procedure Start Time: 10:53 Procedure End Time: 11:12 Procedure Staff Name Function Victoriano Moore MD Performing Physician Cassandra Valencia RT Monitor Ronit Amato RN Nurse Martha Montero RT Scrub Procedure Data Cath Procedure Fluoroscopy Diagnostic fluoroscopy Total fluoroscopy Time: 4.9 time: 4.9 min min Diagnostic fluoroscopy Total fluoroscopy dose: 293 dose: 293 mGy mGy Contrast Material Contrast Material Type Amount (ml) Isovue 370 101 Entry Location Entry Primary Successful Side Size Upsize Upsize Entry Closure Robbins ccessful Closure Location (Fr) 1 (Fr) 2 (Fr) Remarks Device Remarks Radial Right 6 Fr Mechanical artery Short Compression Estimated blood loss: 5 ml Diagnostic catheters Device Type Used For End Catheter Placement DIAGNOSTIC [place] 110cm 5 Multi-vessel Fr catheter ([id number]) Angiography DIAGNOSTIC AR2 MOD 5 Fr Multi-vessel catheter ([id number]) Angiography Procedure Complications No complications Procedure Medications Medication Administration Route Dosage 0.9% NaCl I.V. 100 ml/hr Oxygen etCO2 Nasal cannula 2 l/min Lidocaine 2% added to field 20 Heparin Flush Bag added to field 2 bags (1000units/500ml NS) Radial Cocktail added to field 1 syringe (Verapamil 2mg/Nitro 400mcg/Heparin 1500units) Versed I.V. 2 mg Fentanyl I.V. 50 mcg Versed I.V. 2 mg Fentanyl I.V. 50 mcg Heparin Bolus I.V. 4000 units Plavix P.O. 75 mg Hemodynamics Rest HGB: 14.9 (g/dl) Heart Rate: 79 (bpm) Pressure Samples Time Site Value (mmHg) Purpose Heart Use Rate(bpm) 10:54 LV 88/52,46 Snapshot 148 Snapshots Pre Cath Intra NCS Post Cath Vital Signs Time Heart Resp SPO2 etCO2 NIBP (mmHg) Rhythm Pain Sedation Rate (ipm) (%) (mmHg) Status Level (bpm) 10:33:14 78 23 99 32 150/93(121) NSR 0 (11) 10(A) , No pain 10:37:32 76 20 100 34.5 131/83(115) NSR 0 (11) 10(A) , No pain 10:41:44 76 18 98 36 129/75(102) NSR 0 (11) 10(A) , No pain 10:45:56 77 15 98 39.8 126/75(88) NSR 0 (11) 10(A) , No pain 10:50:08 79 17 97 42 109/66(93) NSR 0 (11) 10(A) , No pain 10:54:14 79 14 97 36 122/65(88) NSR 0 (11) 9(A) , No pain 10:58:26 83 16 98 39 94/62(90) NSR 0 (11) 9(A) , No pain 11:02:23 81 20 98 41.2 113/72(84) NSR 0 (11) 9(A) , No pain 11:06:29 82 14 99 40.5 116/70(93) NSR 0 (11) 9(A) , No pain 11:10:33 78 17 99 39.7 111/76(98) NSR 0 (11) 10(A) , No pain Medications Time Medication Route Dose Verified Delivered Reason Not es Effectiveness by by 10:37:05 0.9% NaCl I.V. 100 Victoriano Ronit used for ml/hr Oscar Amato informatics developer 10:37:13 Oxygen etCO2 2 l/min Victoriano Ronit used for Nasal Oscar Amato procedure cannula RN 10:37:19 Lidocaine 2% added 20ml Victoriano Victoriano for local to vial Oscar Moore MD anesthetic field 10:37:23 Heparin Flush added 2 bags Victoriano Victoriano used for Bag to Oscar Moore MD procedure (1000units/500ml field NS) 10:42:23 Radial Cocktail added 1 Victoriano Ronit used for (Verapamil to syringe Oscar Amato procedure 2mg/Nitro field RN 400mcg/Heparin 1500units) 10:47:31 Versed I.V. 2 mg Victoriano Ronit for sedation Oscar Amato RN 10:47:39 Fentanyl I.V. 50 mcg Victoriano Ronit for sedation Oscar Amato RN 10:52:04 Versed I.V. 2 mg Victoriano Ronit for sedation Oscar Amato RN 10:52:12 Fentanyl I.V. 50 mcg Victoriano Ronit for sedation Oscar Amato RN 11:05:24 Heparin Bolus I.V. 4000 Victoriano Ronit for danny ified units Oscar Amato anticoagulation with Dr. TOÑO Moore 11:10:24 Plavix P.O. 75 mg Victoriano Ronit for Oscar Amato antiplatelet RN therapy Procedure Log Time Note 10:18:54 Time tracking: Regular hours (M-F 7:00 - 5:00) 10:18:58 Plan of Care:Hemodynamics will remain stable., Cardiac rhythm will remain stable., Comfort level will be maintained., Respiratory function will remain adequate., Patient/ family verbilizes understanding of procedure., Procedure tolerated without complication., Recovers from procedure without complications.. 10:19:01 Martha Montero RT(R) sent for patient. Start room use. 10:32:03 Patient received from PCU to CCL 3 Alert and oriented. Tansferred to table in Supine position. 10:32:04 Warm blankets applied, and alma hugger turned on for patient comfort. 10:32:04 Correct patient and procedure confirmed by team. 10:32:05 Signed procedure consent form obtained from patient. 10:32:06 ECG and BP/O2 sat monitors applied to patient. 10:32:07 Vital chart was started 10:37:05 0.9% NaCl 100 ml/hr I.V. was administered by Ronit Amato RN; used for procedure; 10:37:13 Oxygen 2 l/min etCO2 Nasal cannula was administered by Ronit Amato RN; used for procedure; 10:37:19 Lidocaine 2% 20ml vial added to field was administered by Victoriano Moore MD; for local anesthetic; 10:37:23 Heparin Flush Bag (1000units/500ml NS) 2 bags added to field was administered by Victoriano Moore MD; used for procedure; 10:42:21 Baseline sample Acquired. 10:42:23 Radial Cocktail (Verapamil 2mg/Nitro 400mcg/Heparin 1500units) 1 syringe added to field was administered by Ronit Amato RN; used for procedure; 10:42:24 Rhythm: sinus rhythm 10:42:26 Full Disclosure recording started 10:42:29 H&P Date Dictated: 11/12/2018 New H&P dictated by physician.. 10:42:30 Pre-procedure instructions explained to patient. 10:42:31 Pre-op teaching completed and patient verbalized understanding. 10:42:33 Family in patients room. 10:42:34 Patient NPO since Midnight. 10:42:37 Is the patient allergic to Iodine/contrast media? No. 10:42:38 Was the patient premedicated? No 10:42:39 Is patient on blood thinner?No 10:42:40 Patient diabetic? No. 10:42:43 Previous problem with sedation/anesthesia? No ? 10:42:45 Snore? Yes 10:42:45 Sleep apnea? Yes 10:42:46 Deviated septum? No 10:42:47 Opens mouth fully? Yes 10:42:48 Sticks out tongue? Yes 10:42:49 Airway obstruction? No ? 10:42:53 Dentures? Yes OUT 10:42:56 Pre procedure: right dorsailis pedis pulse 2+ Normal; easily identifiable; not easily obliterated 10:43:01 Pre procedure: left dorsailis pedis pulse 2+ Normal; easily identifiable; not easily obliterated 10:43:02 Patient pain scale 0/10 ?. 10:43:09 IV patent on arrival in right forearm with 0.9% NaCl at [facility]. 10:43:11 Lab results completed and on chart. 10:43:15 Right Radial & Right Groin area was prepped with chlora-prep and draped in sterile fashion 10:43:17 Alarms reviewed by R. N. 10:43:17 Sharps counted by scrub and verified by R.N. 10:46:01 Lab Result : Hemoglobin 14.9 g/dl 10:46:01 Lab Result : Creatinine 0.9 mg/dl 10:46:01 Lab Result : BUN 10 mg/dl 10:46:18 Physician arrived 10:46:18 --------ALL STOP TIME OUT------ 10:46:19 Final Timeout: patient, procedure, and site verified with staff and physician. All members of the team are in agreement. 10:46:21 Right Radial & Right Groin site verified by team. 10:46:24 Maximum allowable Isovue 300 dose 300ml. Physician notified. (300ml for normal creatinines. For patients with creatinine of 1.7 or higher multiply weight(kg) x 5 divided by creatinine.) 10:46:28 Fire Safety Assessment: A--An alcohol-based skin anteseptic being used preoperatively., C--Open oxygen or nitrous oxide is being used., D--An ESU, laser, or fiber-optic light is being used. 10:46:32 Physical assessment completed. ASA score P 2 - A patient with mild systemic disease as per Victoriano Moore MD. 10:46:36 Sedation plan: IV Moderate Sedation Medication:Versed, Fentanyl 10:47:31 Versed 2 mg I.V. was administered by Ronit Amato RN; for sedation; 10:47:32 Use device set Radial Dx or PCI 10:47:33 ACIST Syringe (51546) opened to sterile field. 10:47:34 Medline Cath Pack ([id number]) opened to sterile field. 10:47:34 Bag Decanter (2001S) opened to sterile field. 10:47:35 DIAGNOSTIC WIRE .035 260cm J wire (540510) opened to sterile field. 10:47:35 ACIST Hand Control (23713) opened to sterile field. 10:47:36 ACIST Manifold (33950) opened to sterile field. 10:47:36 Tegaderm 4 x 4 (1626W) opened to sterile field. 10:47:37 MBrace Wrist Support ([id number]) opened to sterile field. 10:47:38 SHEATH 6FR Slender (90-3340) opened to sterile field. 10:47:39 Fentanyl 50 mcg I.V. was administered by Ronit Amato RN; for sedation; 10:51:50 Procedure started. 10:52:04 Versed 2 mg I.V. was administered by Ronit Amato RN; for sedation; 10:52:12 Fentanyl 50 mcg I.V. was administered by Ronit Amato RN; for sedation; 10:53:01 Local anesthetic to right radial artery with Lidocaine 2% by Victoriano Moore MD.INITIAL ACCESS ONLY 10:53:17 A 6 Fr Short sheath was inserted into the Right Radial artery 10:53:26 A DIAGNOSTIC Front[place]ac 110cm 5 Fr catheter (115538) was advanced over the wire and used for Multi-vessel Angiography. 10:54:51 LV hemodynamics recorded. 10:54:53 LV gram done using ALEXIS 10:54:56 Injector settings: Ml/sec: 5, Volume: 15, 10:55:02 EF : 60 % 10:55:10 LCA angiography performed. 10:55:18 Injector settings: Ml/sec: 3, Volume: 6, 10:57:46 Catheter removed. 10:57:57 A DIAGNOSTIC AR2 MOD 5 Fr catheter ([id number]) was advanced over the wire and used for Multi-vessel Angiography. 10:58:06 RCA angiography performed. 10:58:09 Injector settings: Ml/sec: 3, Volume: 6, 11:00:40 Catheter removed. 11:00:41 Proceeding to intervention. 11:01:11 Hudson Verrata Plus pressure wire (44070Y) opened to sterile field. 11:01:20 INFLATOR Merit BasixCompak (JU2486) opened to sterile field. 11:01:21 GUIDE 6FR AR 2.0 SH catheter (KR2UZ1CG) opened to sterile field. 11:02:32 6 Fr AR 2 SH guide catheter was inserted over the wire 11:02:52 IFR wire advanced. 11:03:31 Wire advanced across lesion. 11:05:24 Heparin Bolus 4000 units I.V. was administered by Ronit Amato RN; for anticoagulation; verified with Dr. Moore 11:05:59 RCA lesion measured at 0.75 with IFR 11:07:05 CHOICE PT Extra Support 182cm wire ([id number]) opened to sterile field. 11::32 choice pt wire used as a bharat wire 11:08:03 ifr wire removed 11:08:31 Place stent Inflation Number: 1 A GUILLAUME RX 3.0 x 15 stent ([id number]) was prepped and advanced across the Prox RCA. The stent was deployed at 19 ALPESH for 0:10 (min:sec). 11:10:04 Stent catheter was removed intact over wire. 11:10:05 Wire removed. 11:10:05 Guide catheter removed. 11:10:08 TR BAND Standard ([id number]) opened to sterile field. 11:10:16 Sheath removed intact; hemostasis achieved with Mechanical Compression to the Right Radial artery. 11:10:17 Procedure ended.(Physican Out) 11:10:24 Plavix 75 mg P.O. was administered by Ronit Amato RN; for antiplatelet therapy; ::37 Fluoroscopy time 04.90 minutes. :10:42 Fluoroscopy dose: 293 mGy 11::42 Flurop Dose total: 293 11:10:47 Contrast amount:Isovue 370 101ml. 11:10:49 Sharps counted by scrub and verified by R.N. 11:11:21 TR band inflated with 11cc of air. 11:11:25 Insertion/operative site no bleeding no hematoma. 11:11:29 Post right radial artery:stable 11:11:31 Post Procedure Pulses reassessed and unchanged 11:11:34 Post procedure rhythm: unchanged. 11:11:37 Estimated blood loss: 5 ml 11:11:45 Post procedure instruction explained to patient.Patient verbalizes understanding. 11:11:45 Patient needs reinforcement of post procedure teaching. 11:12:01 Procedure type changed to Cath procedure, Diagnostic procedure, LHC, LHC w/Coronaries, FFR/IVUS, FFR Initial, Sedation Charges, Moderate Sedation up to 15 minutes, PCI procedure, Coronary Stent, Coronary Stent Initial 11:12:02 Procedure and supply charges have been captured, reviewed, submitted and are correct. 11:12:12 Procedure Complication : No complications 11:12:15 Vital chart was stopped 11:12:15 See physician's report for complete and final results. 11:12:19 Report given to [facility]. 11:12:22 Patient transfered to [facility] with Stretcher. 11:12:24 Procedure ended. 11:12:24 Full Disclosure recording stopped 11:12:51 ACC-PCI Only Patient was given prescriptions, or instructed by Victoraino Moore MD to start/continue the following medications upon discharge: Plavix 11:12:53 End room use (Document Last) Intervention Summary Intervention Notes Time ActionType Lesion and Equipment Used Action# Pressure Duration Attributes 11:08:31 Place stent Prox RCA GUILLAUME RX 3.0 x 1 19 00:10 15 stent ([id number]) Device Usage Item Name Manufacture Quantity Catalog Number Hospital Part Current Minimal Lot# / Charge Number Stock Stock Serial# Code ACIST Syringe Acist 1 57778 240682 371188 260467 20 (68949) Medical Systems Inc Medline Cath Medline 1 [id number] 914466 07102 307101 5 Pack ([id number]) Bag Decanter Microtek 1 2001S 376163 54383 608103 5 () Medical Inc. DIAGNOSTIC St Shashank 1 615487 603470 175847 597564 30 WIRE .035 260cm J wire (175030) ACIST Hand Acist 1 70867 478881 494842 875248 5 Control Medical (29547) Systems Inc ACIST Manifold Acist 1 38593 778600 215062 945476 5 (98561) Medical Systems Inc Tegaderm 4 x 4 3M 1 1626W 191972 879865 110142 5 (1626W) MBrace Wrist Advanced 1 140-0250-00 145176 12439 818953 5 Support Vascular ([id number]) Dynamics SHEATH 6FR Terumo 1 [id number] 804939 370135 318240 5 Slender (80-1060) DIAGNOSTIC Terumo 1 40-5523 901307 047043 413537 5 Frontenac 110cm 5 Fr catheter (649356) DIAGNOSTIC AR2 Cardinal 1 [id number] 034385 742852 559336 20 MOD 5 Fr Health catheter (117790O) Hudson Hudson 1 92901K 124938 738737995 259164 5 Verrata Plus pressure wire (03836P) INFLATOR Merit Merit 1 IA0898 425569 153232 227607 15 BasixHavkraft Medical (CZ2777) GUIDE 6FR AR Medtronic 1 [id number] 203189 43598 354146 1 2.0 SH catheter ([id number]) CHOICE PT [place] 1 [id number] 929914 987993 396373 5 Extra Support Scientific 182cm wire (1771166H7) GUILLAUME RX 3.0 x Medtronic 1 [id number] 916822 3810696 425452 5 [id number] 15 stent ([id number]) TR BAND Terumo 1 [id number] 316136 748852 956487 40 Standard ([id number]) Signature Audit [place] Stage Time Signature Unsigned Intra-Procedure 11/12/2018 Cassandra Valencia 11:14:24 AM RT(R) Signatures Monitor : Cassandra Valencia RT Signature : Date : Time : [facility] [address] [facility] [place] [address]
[~2018-11-11 09:04] MED LIST changes: -HYDROCHLOROTHIA25 MG PO; -[UNRECOGNIZED DRUG - REMARK]
[2018-11-11 09:27] LABS: BASOPHILS 0.2 % (0-2); EOSINOPHILS 2.7 % (0-7); HEMATOCRIT 44.2 % (42.0-54.0); HEMOGLOBIN 14.9 g/dL (13.5-17.5); IMMATURE GRANULOCYTES 0.3 % (0-5); LYMPHOCYTES 27.7 % (15-50); MCH 29.4 pg (26.0-34.0); MCHC 33.7 g/dL (31.0-37.0); MCV 87.2 fL (80.0-100.0); MEAN PLATELET VOLUME 10.7 fL (7.4-10.4); NEUTROPHILS 61.1 % (40-80); PLATELET COUNT 234 10x3/uL (130-400); RBC 5.07 10x6/uL (4.20-6.10); RDW 13.1 % (11.5-14.5); WBC 9.5 10x3/uL (4.8-10.8)
[2018-11-11 09:42] LABS: ALBUMIN 3.6 g/dL (3.4-5.0); ALKALINE PHOSPHATASE 56 U/L (46-116); ALT (SGPT) 31 U/L (10-68); CALC OSMOLALITY 274 mosm/kg (275-300); CALCIUM 8.7 mg/dL (8.5-10.1); CARBON DIOXIDE 32.3 mmol/L (21.0-32.0); CHLORIDE - SERUM 103 mmol/L (98-107); CREATININE - SERUM 0.9 mg/dL (0.6-1.3); GLUCOSE 106 mg/dL (74-106); POTASSIUM - SERUM 4.3 mmol/L (3.5-5.1); PROTEIN - SERUM 7.2 g/dL (6.4-8.2); SODIUM 138 mmol/L (136-145); UREA NITROGEN 10 mg/dL (7-18); eGFR NON AFRICAN AMERICAN > 90 mL/min (90-120)
[2018-11-11 09:53] LABS: CKMB 1.4 U/L (0.0-3.6); CREATINE KINASE 54 UL (21-232); TROPONIN-I < 0.017 ng/mL (0.000-0.060)
[2018-11-11 10:19] VITALS: BP 128/78
--- NOTE | 2018-11-11 10:20 | NUR ---
PAIN 2/10 AFTER NTG
[2018-11-11 11:02] LABS: APPEARANCE CLEAR (CLEAR); BILIRUBIN NEGATIVE (NEGATIVE); COLOR YELLOW (YELLOW); GLUCOSE NEGATIVE (NEGATIVE); KETONE NEGATIVE (NEGATIVE); NITRITE NEGATIVE (NEGATIVE); PROTEIN NEGATIVE (NEGATIVE); SPECIFIC GRAVITY 1.005 (1.005-1.020); UROBILINOGEN NORMAL (NORMAL)
[2018-11-11 11:05] VITALS: BP 137/83
[2018-11-11 11:10] LABS: CKMB 1.5 U/L (0.0-3.6)
--- NOTE | 2018-11-11 12:21 | NUR ---
RECEIVED PT TO ROOM 2113 VIA W/C AAOX4 RESP UNLABORED DENIES ANY NEEDS AT THIS TIME SKIN W/D COLOR WNL TELEMETRY SR RAte 67 will continue toMONITOR
[2018-11-11 13:02] VITALS: Ht 170.2 cm; Wt 89.5 kg
[2018-11-11 14:03] VITALS: BP 116/67
[2018-11-11] MEDS ORDERED: [UNRECOGNIZED DRUG - REMARK] (15:44)
[2018-11-11 16:04] LABS: CKMB 1.1 U/L (0.0-3.6); CREATINE KINASE 44 UL (21-232); TROPONIN-I < 0.017 ng/mL (0.000-0.060)
[2018-11-11 20:00] VITALS: BP 123/69
--- NOTE | 2018-11-11 20:00 | NUR ---
INITIAL ROUNDS AND ASSESSMENT COMPLETED. PT ALERT/ORIENTED. SR PER TELEMETRY. NONLABORED RESPIRATIONS ON ROOM AIR. PIV TO RIGHT A/C. DENIES CHEST PAIN AT THIS TIEM. PT TEACHING ON NPO AFTER MIDNIGHT UNTIL SEEN BY STORE LEADER IN AM AND S/S OF PAIN TO REPORT TO NURSE. FAMILY X 1 AT BEDSIDE. MONITOR AND CPOC.
[2018-11-11 21:43] LABS: CREATINE KINASE 47 UL (21-232)
[2018-11-11 21:45] LABS: TROPONIN-I < 0.017 ng/mL (0.000-0.060)
[2018-11-12] VITALS: BP 101/63
[2018-11-12 03:14] LABS: BASOPHILS 0.3 % (0-2); EOSINOPHILS 3.2 % (0-7); HEMATOCRIT 41.2 % (42.0-54.0); HEMOGLOBIN 13.8 g/dL (13.5-17.5); IMMATURE GRANULOCYTES 0.4 % (0-5); LYMPHOCYTES 24.4 % (15-50); MCH 29.2 pg (26.0-34.0); MCHC 33.5 g/dL (31.0-37.0); MCV 87.1 fL (80.0-100.0); MEAN PLATELET VOLUME 10.5 fL (7.4-10.4); MONOCYTES 9.1 % (2-11); NEUTROPHILS 62.6 % (40-80); PLATELET COUNT 216 10x3/uL (130-400); RBC 4.73 10x6/uL (4.20-6.10); RDW 13.1 % (11.5-14.5); WBC 10.5 10x3/uL (4.8-10.8)
[2018-11-12 03:36] LABS: ALBUMIN 3.1 g/dL (3.4-5.0); ALKALINE PHOSPHATASE 51 U/L (46-116); BILIRUBIN - TOTAL 0.32 mg/dL (0.2-1.3); CALCIUM 8.2 mg/dL (8.5-10.1); CARBON DIOXIDE 26.6 mmol/L (21.0-32.0); CHLORIDE - SERUM 104 mmol/L (98-107); CKMB 1.4 U/L (0.0-3.6); CREATINE KINASE 43 UL (21-232); CREATININE - SERUM 0.9 mg/dL (0.6-1.3); GLUCOSE 102 mg/dL (74-106); POTASSIUM - SERUM 4.1 mmol/L (3.5-5.1); PROTEIN - SERUM 6.4 g/dL (6.4-8.2); SODIUM 140 mmol/L (136-145); eGFR NON AFRICAN AMERICAN > 90 mL/min (90-120)
[2018-11-12 03:37] LABS: ALT (SGPT) 23 U/L (10-68); CALC OSMOLALITY 279 mosm/kg (275-300); TROPONIN-I < 0.017 ng/mL (0.000-0.060); UREA NITROGEN 15 mg/dL (7-18)
--- NOTE | 2018-11-12 03:55 | NUR ---
RESTING IN BED. NPO FOR AM PROCEDURE. MONITOR AND CPOC. AT BEDSIDE.
[2018-11-12 04:00] VITALS: BP 105/63
[2018-11-12 08:55] VITALS: BP 118/70
--- NOTE | 2018-11-12 10:33 | NUR ---
PRE-OPS GIVEN. TO [place] INFORMATION CLERK BY BED.
--- NOTE | 2018-11-12 11:36 | NUR ---
BACK FROM CONVERTING TECHNICIAN. VS WNL. RIGHT WRIST STABLE WITH TR BAND INTACT. WILL MONITOR.
[2018-11-12 12:36] VITALS: BP 115/74
[2018-11-12] MEDS ORDERED: PLAVIX75 MG PO (14:06)
[2018-11-12] MEDS ORDERED: HYDROCHLOROTHIA25 MG PO (14:07)
--- NOTE | 2018-11-12 15:07 | NUR ---
TR BAND DCD WITHOUT BLEEDING OR HEMATOMA NOTED. WILL MONITOR.
--- NOTE | 2018-11-12 15:49 | NUR ---
IV AND TELEMETRY DCD. DC PLANS GIVEN. UNDERSTANDING VOICED. ESCORTED TO CAR BY W/C.
--- NOTE | 2018-11-13 10:43 | MORECARE ---
CASE MANAGEMENT DISCHARGE SUMMARY PATIENT: EVELYNE KNOTT UNIT: [id number] ADM DATE: 11/11/18 AGE: 63 : 57 SEX: M ROOM/BED: D.2114 AUTHOR: HECTOR NESS PHYSICIAN: REFERRING PHYSICIAN: ABIGAIL CHAN MD DATE OF SERVICE: 11/13/18 Discharge Plan Patient Name: [facility] KNOTT [facility] [facility] 1955 Planned Disposition: Home Anticipated Discharge Date: 11/12/18 Discharge Date: 11/12/2018 Expected LOS: 1 Initial Reviewer: [email or web address] Initial Review Date: 11/13/2018 Generated: 11/13/18 11:43 am Patient Name: EVELYNE KNOTT Page [id number] at 1043 All edits/amendments must be made on the electronic document DICTATION DATE: 11/13/18 1043 ASTRONOMY DEPARTMENT CHAIR: PROSPER 11/13/18 1043 RPT#: [id number] DC DATE:11/12/18 STATUS: DIS IN [facility] [address] [place] [address] END OF REPORT
== END 2018-11-12 16:11 | disposition home or self-care (01) ==
LOC: D.ER 09:04 → D.EDHOLD 10:39 → D.M2 10:39 → OBSVTIME 10:40 → D.M2 11:17
PROVIDERS: Emergency Medicine; ADMIT Family Medicine; ATTEND Family Medicine
DX: I25.110 Atherosclerotic heart disease of native coronary artery with unstable angina pectoris (principal); I10 Essential (primary) hypertension; E78.5 Hyperlipidemia, unspecified

== ENCOUNTER 2018-11-25 04:05 | Observation (INO) | payer OTHER ==
[~2018-11-25] VITALS: Ht 170.2 cm; Wt 84.8 kg
--- NOTE | ~2018-11-25 | HEMODYNAMI ---
PATIENT:EVELYNE KNOTT MEDICAL RECORD: [id number] : 57 LOCATION:[facility] D.2115 ADMISSION DATE: 11/25/18 Generatedon:11/25/201812:55 Patient name: EVELYNE KNOTT Patient #: [id number] SSN: : 1955 Date of study: 11/25/2018 Page: Of Hemodynamic Procedure Report Patient Data Patient Demographics Procedure consent was obtained First Name: EVELYNE Gender: Male Last Name: NIKOS : 1955 Middle Initial: RAY Age: 63 year(s) Patient #: [id number] Race: Unknown Additional ID: [id number] Contact details Address: [address] [place] [address] State: [place] City: [place] Zip code: [address] Past Medical History Allergies: No known allergies Admission Admission Data Admission Date: 11/25/2018 Admission Time: 5:19 Admit Source: Emergency department Room #: D.2115 Procedure Procedure Types Cath Procedure Diagnostic Procedure LHC LHC w/Coronaries Procedure Description Procedure Date Procedure Date: 11/25/2018 Procedure Start Time: 12:47 Procedure End Time: 12:55 Procedure Staff Name Function Hardeep Wilkerson MD Performing Physician Martha Montero RT Monitor Jonathan Clancy RT Scrub Shravan Kraus RN Nurse Procedure Data Cath Procedure Fluoroscopy Diagnostic fluoroscopy Total fluoroscopy Time: 1.5 time: 1.5 min min Diagnostic fluoroscopy Total fluoroscopy dose: 435 dose: 435 mGy mGy Contrast Material Contrast Material Type Amount (ml) Isovue 300 50 Entry Location Entry Primary Successful Side Size Upsize Upsize Entry Closure Robbins ccessful Closure Location (Fr) 1 (Fr) 2 (Fr) Remarks Device Remarks Radial Right 6 Fr Mechanical artery Short Compression Estimated blood loss: 5 ml Diagnostic catheters Device Type Used For End Catheter Placement DIAGNOSTIC Wilson 110cm 5 LV Angiography Fr catheter ([id number]) DIAGNOSTIC Wilson 110cm 5 Left Coronary Fr catheter ([id number]) Angiography DIAGNOSTIC Wilson 110cm 5 Right Coronary Fr catheter ([id number]) Angiography Procedure Complications No complications Procedure Medications Medication Administration Route Dosage 0.9% NaCl I.V. 100 ml/hr Oxygen etCO2 Nasal cannula 2 l/min Heparin Flush Bag added to field 2 bags (1000units/500ml NS) Lidocaine 2% added to field 20 Radial Cocktail added to field 1 syringe (Verapamil 2mg/Nitro 400mcg/Heparin 1500units) Versed I.V. 1 mg Fentanyl I.V. 50 mcg Radial Cocktail I.A. 1 syringe (Verapamil 2mg/Nitro 400mcg/Heparin 1500units) Versed I.V. 1 mg Fentanyl I.V. 50 mcg Hemodynamics Rest Heart Rate: 63 (bpm) Pressure Samples Time Site Value (mmHg) Purpose Heart Use Rate(bpm) 12:50 AO 126/8(42) EDP 90 12:50 AO 91/61(75) Pullback 87 12:50 LV 88/3,9 Pullback 87 Gradients Valve Time Site 1 Site 2 Mean SEP/DFP Peak To Heart Use (mmHg) (sec/min) Peak Rate (mmHg) (bpm) Aortic 12:50 LV AO 91 Aortic 12:50 LV AO 0 7 0 87 88/3,9 91/61(75) Calculations Valve P-P Mean Valve Index Valve Source Name Gradient Area Flow (cm2) Aortic 0 0 0 0 Snapshots Pre Cath Intra NCS Post Cath Vital Signs Time Heart Resp SPO2 etCO2 NIBP Rhythm Pain Sedation Rate (ipm) (%) (mmHg) (mmHg) Status Level (bpm) 12:40:42 82 18 95 38.8 126/68(93) NSR 0 (11) 10(A) , No pain 12:45:00 81 22 96 41.8 125/78(92) NSR 0 (11) 10(A) , No pain 12:49:22 87 24 94 41.8 97/59(75) NSR 0 (11) 9(A) , No pain 12:54:17 90 16 93 43.3 117/69(99) NSR 0 (11) 9(A) , No pain Medications Time Medication Route Dose Verified Delivered Reason Notes Effectiveness by by 12:38:48 0.9% NaCl I.V. 100 Shravan Shravan Per ml/hr Efra Kraus physician RN RN 12:38:58 Oxygen etCO2 2 l/min Shravan Shravan for low 02 Nasal Lorigan Lorigan sats cannula RN RN 12:39:07 Heparin Flush added 2 bags Shravan Shravan used for Bag to Lorigan Lorigan procedure (1000units/500ml field RN RN NS) 12:39:17 Lidocaine 2% added 20ml Shravan Shravan for local to vial Lorigan Lorigan anesthetic field RN RN 12:39:30 Radial Cocktail added 1 Shravan Shravan used for (Verapamil to syringe Lorigan Lorigan procedure 2mg/Nitro field RN RN 400mcg/Heparin 1500units) 12:44:07 Versed I.V. 1 mg Shravan Shravan for sedation Efra Kraus RN RN 12:44:16 Fentanyl I.V. 50 mcg Shravan Shravan for sedation Efra Kraus RN RN 12:48:47 Radial Cocktail I.A. 1 Shravan Hardeep for (Verapamil syringe Lorigan Rock vasodilation 2mg/Nitro RN 400mcg/Heparin 1500units) 12:49:03 Versed I.V. 1 mg Shravan Shravan for sedation Efra Kraus RN RN 12:49:08 Fentanyl I.V. 50 mcg Shravan Shravan for sedation Efra Kraus RN academic manager Log Time Note 12:10:22 Informed consent obtained and on chart 12:10:25 Admit Source: Emergency department 12:10:45 Diagnostic Cath status Urgent 12:10:49 Time tracking: Regular hours (M-F 7:00 - 5:00) 12:10:53 Plan of Care:Hemodynamics will remain stable., Cardiac rhythm will remain stable., Comfort level will be maintained., Respiratory function will remain adequate., Patient/ family verbilizes understanding of procedure., Procedure tolerated without complication., Recovers from procedure without complications.. 12:22:08 Jonathan Clancy RT(R) sent for patient. Start room use. 12:30:09 Patient received from PCU to CCL 1 Alert and oriented. Tansferred to table in Supine position. 12:30:10 Warm blankets applied, and alma hugger turned on for patient comfort. 12:30:10 Correct patient and procedure confirmed by team. 12:30:11 ECG and BP/O2 sat monitors applied to patient. 12:30:12 Full Disclosure recording started 12:38:48 0.9% NaCl 100 ml/hr I.V. was administered by Shravan Lorigan RN; Per physician; 12:38:58 Oxygen 2 l/min etCO2 Nasal cannula was administered by Shravan Kraus RN; for low 02 sats; 12:39:07 Heparin Flush Bag (1000units/500ml NS) 2 bags added to field was administered by Shravan Kraus RN; used for procedure; 12:39:17 Lidocaine 2% 20ml vial added to field was administered by Shravan Kraus RN; for local anesthetic; 12:39:30 Radial Cocktail (Verapamil 2mg/Nitro 400mcg/Heparin 1500units) 1 syringe added to field was administered by Shravan Kraus RN; used for procedure; 12:39:33 Vital chart was started 12:40:02 Rhythm: sinus rhythm 12:40:25 H&P Date Dictated: 11/25/2018 Within 30 days and on chart.. 12:40:26 Pre-procedure instructions explained to patient. 12:40:27 Pre-op teaching completed and patient verbalized understanding. 12:40:34 Family in waiting room. 12:40:37 Patient NPO since Midnight. 12:40:55 Patient allergic to No known allergies 12:40:57 Is the patient allergic to Iodine/contrast media? No. 12:41:01 Is patient on blood thinner?Yes 12:41:09 ACC The patient was administered the following blood thiners within the last 24 hours: ACCPlavix 12:41:11 Patient diabetic? No. 12:41:13 Previous problem with sedation/anesthesia? No ? 12:41:14 Snore? Yes 12:41:15 Sleep apnea? No 12:41:16 Deviated septum? No 12:41:17 Opens mouth fully? Yes 12:41:18 Sticks out tongue? Yes 12:41:19 Airway obstruction? No ? 12:41:22 Dentures? Yes out 12:41:25 Pre procedure: right dorsailis pedis pulse 2+ Normal; easily identifiable; not easily obliterated 12:41:27 Modified Van's test Ulnar < 7 seconds 12:41:29 Patient pain scale 0/10 ?. 12:41:37 IV patent on arrival in left forearm with 0.9% NaCl at [facility]. 12:41:39 Lab results completed and on chart. 12:41:45 Right Radial & Right Groin area was prepped with chlora-prep and draped in sterile fashion 12:41:46 Alarms reviewed by R. N. 12:41:46 Sharps counted by scrub and verified by R.N. 12:43:27 Baseline sample Acquired. 12:43:32 Final Timeout: patient, procedure, and site verified with staff and physician. All members of the team are in agreement. 12:43:34 Right Radial & Right Groin site verified by team. 12:43:37 Maximum allowable Isovue 300 dose 300ml. Physician notified. (300ml for normal creatinines. For patients with creatinine of 1.7 or higher multiply weight(kg) x 5 divided by creatinine.) 12:43:41 Fire Safety Assessment: A--An alcohol-based skin anteseptic being used preoperatively., C--Open oxygen or nitrous oxide is being used., D--An ESU, laser, or fiber-optic light is being used. 12:43:44 Physical assessment completed. ASA score P 2 - A patient with mild systemic disease as per Hardeep Wilkerson MD. 12:43:47 Sedation plan: IV Moderate Sedation Medication:Versed, Fentanyl 12:44:04 Use device set Radial Dx or PCI 12:44:04 ACIST Syringe (80126) opened to sterile field. 12:44:05 Medline Cath Pack ([id number]) opened to sterile field. 12:44:05 Bag Decanter (2002S) opened to sterile field. 12:44:06 DIAGNOSTIC WIRE .035 260cm J wire (370161) opened to sterile field. 12:44:06 ACIST Hand Control (80391) opened to sterile field. 12:44:07 Versed 1 mg I.V. was administered by Shravan Kraus RN; for sedation; 12:44:07 ACIST Manifold (80131) opened to sterile field. 12:44:10 MBrace Wrist Support ([id number]) opened to sterile field. 12:44:12 SHEATH 6FR Slender (71-4620) opened to sterile field. 12:44:16 Fentanyl 50 mcg I.V. was administered by Shravan Kraus RN; for sedation; 12:46:59 Procedure started. 12:47:04 Local anesthetic to right radial artery with Lidocaine 2% by Hardeep Wilkerson MD.INITIAL ACCESS ONLY 12:47:12 A 6 Fr Short sheath was inserted into the Right Radial artery 12:48:40 A DIAGNOSTIC Wilson 110cm 5 Fr catheter (360352) was advanced over the wire and used for LV Angiography. 12:48:47 Radial Cocktail (Verapamil 2mg/Nitro 400mcg/Heparin 1500units) 1 syringe I.A. was administered by Hardeep Wilkerson MD; for vasodilation; 12:48:58 Zero performed for pressure channel P1 12:49:02 Zero performed for pressure channel P1 12:49:03 Versed 1 mg I.V. was administered by Shravan Kraus RN; for sedation; 12:49:07 Zero performed for pressure channel P1 12:49:08 Fentanyl 50 mcg I.V. was administered by Shravan Kraus RN; for sedation; 12:50:40 LV gram done using ALEXIS 12:50:44 EF : 55 % 12:50:46 LV hemodynamics recorded. 12:50:50 Injector settings: Ml/sec: 5, Volume: 15, 12:51:05 A DIAGNOSTIC Wilson 110cm 5 Fr catheter (897326) was advanced over the wire and used for Left Coronary Angiography. 12:52:26 A DIAGNOSTIC Wilson 110cm 5 Fr catheter (431853) was advanced over the wire and used for Right Coronary Angiography. 12:52:28 Catheter removed. 12:52:41 TR BAND Standard ([id number]) opened to sterile field. 12:52:56 Sheath removed intact; hemostasis achieved with Mechanical Compression to the Right Radial artery. 12:52:57 Procedure ended.(Physican Out) 12:53:09 Fluoroscopy time 01.50 minutes. 12:53:12 Fluoroscopy dose: 435 mGy 12:53:12 Flurop Dose total: 435 12:53:15 Contrast amount:Isovue 300 50ml. 12:53:16 Sharps counted by scrub and verified by R.N. 12:53:19 TR band inflated with 10cc of air. 12:53:20 Insertion/operative site no bleeding no hematoma. 12:53:38 Post right radial artery:stable, clean and dry 12:53:40 Post Procedure Pulses reassessed and unchanged 12:53:45 Post-procedure physical assessment completed. ASA score P 2 - A patient with mild systemic disease as per Hardeep Wilkerson MD. 12:53:47 Post procedure rhythm: unchanged. 12:53:48 Estimated blood loss: 5 ml 12:53:50 Post procedure instruction explained to patient.Patient verbalizes understanding. 12:53:50 Patient needs reinforcement of post procedure teaching. 12:53:58 Procedure Complication : No complications 12:53:59 See physician's report for complete and final results. 12:54:27 Procedure and supply charges have been captured, reviewed, submitted and are correct. 12:54:47 Vital chart was stopped 12:54:50 Report given to PCU. 12:54:53 Patient transfered to PCU with Stretcher. 12:55:01 Procedure ended. 12:55:01 Full Disclosure recording stopped 12:55:04 End room use (Document Last) Device Usage Item Name Manufacture Quantity Catalog Hospital Part Current Minimal Lot# / Number Charge Number Stock Stock Serial# Code ACIST Acist 1 90047 611745 623596 860223 20 Syringe Medical (34969) Systems Inc Medline Medline 1 [id number] 554101 27579 922607 5 Cath Pack ([id number]) Bag Microtek 1 2001S 812687 45967 382863 5 Decanter Medical Inc. () DIAGNOSTIC St Shashank 1 224427 012079 288522 205028 30 WIRE .035 260cm J wire (137074) ACIST Hand Acist 1 60512 235631 301184 477778 5 Control Medical (00987) Systems Inc ACIST Acist 1 31202 663281 087330 774105 5 Manifold Medical (66606) Systems Inc MBrace Advanced 1 140-0250-00 320505 53642 465522 5 Wrist Vascular Support Dynamics ([id number]) SHEATH 6FR Terumo 1 [id number] 049624 490920 722447 5 Slender (80-1060) DIAGNOSTIC Terumo 1 40-7053 132477 045847 159773 5 Wilson 110cm 5 Fr catheter (862202) TR BAND Terumo 1 [id number] 778666 570454 531474 40 Standard ([id number]) Signature Audit Zahl Stage Time Signature Unsigned Intra-Procedure 11/25/2018 Martha 12:55:48 PM Counts RT(R) Signatures Monitor : Martha Signature : Counts RT Date : Time : [address] [place] [address]
[~2018-11-25 04:05] MED LIST changes: +HYDROCHLOROTHIA25 MG PO; +[UNRECOGNIZED DRUG - REMARK]
[2018-11-25 04:31] LABS: BASOPHILS 0.2 % (0-2); HEMATOCRIT 43.2 % (42.0-54.0); HEMOGLOBIN 14.9 g/dL (13.5-17.5); IMMATURE GRANULOCYTES 0.3 % (0-5); LYMPHOCYTES 25.2 % (15-50); MCH 29.9 pg (26.0-34.0); MCHC 34.5 g/dL (31.0-37.0); MCV 86.6 fL (80.0-100.0); MEAN PLATELET VOLUME 10.4 fL (7.4-10.4); MONOCYTES 8.5 % (2-11); NEUTROPHILS 61.8 % (40-80); PLATELET COUNT 255 10x3/uL (130-400); RBC 4.99 10x6/uL (4.20-6.10); RDW 12.8 % (11.5-14.5); WBC 9.9 10x3/uL (4.8-10.8)
[2018-11-25 04:39] LABS: INR 1.03 (0.85-1.17)
[2018-11-25 04:40] LABS: APTT 31.9 SECONDS (22.8-39.4)
[2018-11-25 04:41] LABS: D-DIMER-QUANTITATIVE < 0.27 ug/mLFEU (0.20-0.54)
--- NOTE | 2018-11-25 04:42 | NUR ---
PT C/O CHEST PAIN 09/16 AT THIS TIME SEE EMAR
[2018-11-25 04:43] VITALS: BP 149/86
[2018-11-25 04:48] LABS: ALBUMIN 3.6 g/dL (3.4-5.0); ALKALINE PHOSPHATASE 54 U/L (46-116); ALT (SGPT) 23 U/L (10-68); BILIRUBIN - TOTAL 0.54 mg/dL (0.2-1.3); CALC OSMOLALITY 280 mosm/kg (275-300); CALCIUM 8.7 mg/dL (8.5-10.1); CARBON DIOXIDE 31.3 mmol/L (21.0-32.0); CHLORIDE - SERUM 102 mmol/L (98-107); CREATININE - SERUM 0.9 mg/dL (0.6-1.3); GLUCOSE 116 mg/dL (74-106); POTASSIUM - SERUM 3.6 mmol/L (3.5-5.1); PROTEIN - SERUM 7.4 g/dL (6.4-8.2); SODIUM 140 mmol/L (136-145); UREA NITROGEN 14 mg/dL (7-18); eGFR NON AFRICAN AMERICAN > 90 mL/min (90-120)
[2018-11-25 04:49] VITALS: BP 131/75
--- NOTE | 2018-11-25 04:58 | NUR ---
PT RATES PAIN A 07/19 AT THIS TIME. MD INFORMED SEE EMAR.
[2018-11-25 04:59] LABS: CKMB 1.4 U/L (0.0-3.6); CREATINE KINASE 56 UL (21-232); MAGNESIUM - SERUM 2.3 mg/dL (1.8-2.4)
[2018-11-25 05:01] LABS: TROPONIN-I < 0.017 ng/mL (0.000-0.060)
[2018-11-25 06:11] VITALS: BP 126/80; Ht 170.2 cm; Wt 84.8 kg
--- NOTE | 2018-11-25 06:23 | NUR ---
PT ARRIVED TO FLOOR AT 0600. SITTING AT BEDSIDE. CURRENTLY 71 NSR AT THIS TIME. ASSESSMENT COMPLETE UNABLE TO ANSWER QUESTIONS REGARDING LENGTH OF STAY AND STENT PLACEMENT. EXPLAINED TO PT THAT HE WOULD HAVE TO SPEAK WITH MOTOR MAN.
--- NOTE | 2018-11-25 07:30 | NUR ---
RECEIVED PT IN BED AAOX4 RESP UNLABORED DENIES ANY CHEST PAIN AT THIS TIME NAD NOTED
[2018-11-25 08:07] VITALS: BP 125/78
[2018-11-25 08:53] LABS: BASOPHILS 0.2 % (0-2); EOSINOPHILS 3.7 % (0-7); HEMATOCRIT 44.1 % (42.0-54.0); HEMOGLOBIN 14.8 g/dL (13.5-17.5); IMMATURE GRANULOCYTES 0.3 % (0-5); LYMPHOCYTES 26.2 % (15-50); MCH 29.2 pg (26.0-34.0); MCHC 33.6 g/dL (31.0-37.0); MCV 87.2 fL (80.0-100.0); MEAN PLATELET VOLUME 10.7 fL (7.4-10.4); MONOCYTES 7.8 % (2-11); NEUTROPHILS 61.8 % (40-80); PLATELET COUNT 263 10x3/uL (130-400); RBC 5.06 10x6/uL (4.20-6.10); RDW 12.8 % (11.5-14.5); WBC 9.8 10x3/uL (4.8-10.8)
[2018-11-25 08:58] LABS: CALC OSMOLALITY 277 mosm/kg (275-300); CALCIUM 8.1 mg/dL (8.5-10.1); CARBON DIOXIDE 26.2 mmol/L (21.0-32.0); CHLORIDE - SERUM 105 mmol/L (98-107); CREATININE - SERUM 0.9 mg/dL (0.6-1.3); GLUCOSE 117 mg/dL (74-106); SODIUM 139 mmol/L (136-145); UREA NITROGEN 11 mg/dL (7-18); eGFR NON AFRICAN AMERICAN > 90 mL/min (90-120)
[2018-11-25 08:59] LABS: POTASSIUM - SERUM 4.2 mmol/L (3.5-5.1)
[2018-11-25 11:47] VITALS: BP 133/81
[2018-11-25 15:42] VITALS: BP 110/66
--- NOTE | 2018-11-25 18:15 | NUR ---
IGNACIO MORALES WITH PT STATES UNDERSTANDING COPY GIVEN DCD SALINE LOCK TO RAC WITH IV CATHETER INTACT SITE FREE OF REDNESS OR EDEMA PT DISCHARGED HOME LEFT UNIT VIA W/C IN STABLE CONDITION WITH ALL PERSONAL BELONGINGS
--- NOTE | 2018-11-26 08:27 | MORECARE ---
CASE MANAGEMENT DISCHARGE SUMMARY PATIENT: EVELYNE KNOTT UNIT: [id number] ADM DATE: 11/25/18 AGE: 63 : 57 SEX: M ROOM/BED: D.2115 AUTHOR: HECTOR NESS PHYSICIAN: REFERRING PHYSICIAN: NICKI LIMA MD DATE OF SERVICE: 11/26/18 Discharge Plan Patient Name: [facility] KNOTT [facility] [facility] 1955 Planned Disposition: Home Anticipated Discharge Date: 11/25/18 Discharge Date: 11/25/2018 Expected LOS: 1 Initial Reviewer: [email or web address] Initial Review Date: 11/26/2018 Generated: 11/26/18 9:27 am Patient Name: EVELYNE KNOTT Page 81013 at 0827 All edits/amendments must be made on the electronic document DICTATION DATE: 11/26/18825 FILTER BED PLACER: PROSPER 11/26/18825 RPT#: [id number] DC DATE:11/25/18 STATUS: DIS IN [facility] [address] [place] [address] END OF REPORT
--- NOTE | 2018-11-26 10:07 | CN ---
PATIENT NAME:EVELYNE KNOTT MEDICAL RECORD: [id number] : 57 LOCATION:[facility] D.2115 ADMIT DATE: 11/25/18 ACCOUNT: [id number] CONSULTING PHYSICIAN: MAHSA CALLAHAN MD REFERRING PHYSICIAN: NICKI LIMA MD DATE OF CONSULTATION: 11/25/2018 HISTORY OF PRESENT ILLNESS: A 63-year-old gentleman with history of coronary artery disease, status post intervention, admitted with chest tightness and pressure, initially with exertion yesterday while riding a lawnmower. Now, the patient has onset of chest tightness and pressure, radiating to the jaw, consistent with previous angina. We are asked to see him concerning cardiovascular status. PAST MEDICAL HISTORY: Includes; 1. History of coronary artery disease. 2. Hypertension. 3. Hyperlipidemia. MEDICATIONS: Hydrochlorothiazide 25 daily, aspirin 81 daily, Ranexa 500 b.i.d., lisinopril 10 daily, atorvastatin 40 daily, and Plavix 75 daily. SOCIAL HISTORY: Nonsmoker and nondrinker. He stays quite active. REVIEW OF SYSTEMS: The patient reports easy bruising but reports no swollen glands. The patient reports no fever, no night sweats, no significant weight gain, no significant weight loss. No significant exercise tolerance. The patient reports no dry eyes, no irritation, no vision change. Patient reports no difficulty hearing and no ear pain. Patient reports no frequent nose bleeds or nose and sinus problems. Patient reports on arm pain on exertion. No shortness of breath while lying down. No history of heart murmur. Patient reports no cough, no wheezing or coughing up blood. Patient reports no abdominal pain, no vomiting. Normal appetite. No diarrhea and not vomiting blood. No nausea and no constipation. Patient reports no incontinence. No difficulty urinating. No hematuria. No increased frequency. Patient reports no muscle aches. No weakness, no arthralgias, no back pain. No swelling of the extremities. Patient reports no abnormal mole, no jaundice, no rashes. Reports no loss of consciousness. No weakness and no numbness. No seizures, dizziness, or headaches. The patient reports no depression, no sleep disturbance, feeling safe in a relationship and no alcohol abuse. Patient reports on fatigue. Reports no runny nose or sinus pressure. No itching, no hives, and no frequent sneezing. PHYSICAL EXAMINATION: GENERAL: Pleasant gentleman, in no acute distress. VITAL SIGNS: Blood pressure 125/78. Pulse 64 and regular. HEENT: Normocephalic and atraumatic. NECK: No JVD or bruit. HEART: Regular. LUNGS: Lung eid are clear. ABDOMEN: Soft and nontender. EXTREMITIES: Pulses 2+ and equal. No edema. DIAGNOSTIC DATA: ECG without acute change. CONSULT REPORT [id number] KNOTT,EVELYNE RAY IMPRESSION: Acute coronary syndrome. PLAN: Plan is for angiography and intervention based on above. TRANSINT:[id number] Voice Confirmation ID: [id number] DOCUMENT ID: [id number] MAHSA CALLAHAN MD at 1007 CC: [id number] DICTATION DATE: 11/25/18 09 COUNTY AGRICULTURAL AGENT: 11/25/18 1627 DIS IN 11/25/18 [place] [address] [place] [address]
--- NOTE | 2018-11-26 10:07 | OP ---
PATIENT NAME: EVELYNE LAMA MEDICAL RECORD: [id number] :57 LOCATION:D.M2 D.2115 ADMISSION DATE:11/25/18 SURGEON: MAHSA CALLAHAN MD DATE OF OPERATION: 11/25/2018 PROCEDURE: Left heart catheterization, selective coronary angiography, right radial approach. CATHETERS: Radial sheath, Lane catheter. The procedure was well tolerated. The patient was returned to the lama. Sheath was removed. TR band was placed. FINDINGS: Left ventriculography in 30-degree ALEXIS view: Normal wall motion and normal systolic function. CORONARY ANATOMY: LEFT MAIN: Left main is free of disease. LAD: Area of previous stenting is widely patent. There is no evidence of restenosis and no progression of disease. CIRCUMFLEX: Free of disease. RIGHT CORONARY ARTERY: Previous placed stent is widely patent. No evidence of thrombosis or restenosis. Rest of vessel is with no progression of disease. TRANSINT:[id number] Voice Confirmation ID: [id number] DOCUMENT ID: [id number] MAHSA CALLAHAN MD at 1007 CC: [id number] DICTATION DATE: 11/25/18 1313 PIPE FOREMAN: 11/25/18 1848 DIS IN 11/25/18 [facility] [address] [place] [id number]
--- NOTE | 2018-11-26 10:07 | EC ---
PATIENT:EVELYNE KNOTT DATE OF SERVICE: 11/25/18 SEX: M MEDICAL RECORD: [id number] DATE OF : [birth year] LOCATION:D.M2 D.211 AGE OF PATIENT: 63 ADMISSION DATE: 11/25/18 REFERRING PHYSICIAN: INTERPRETING PHYSICIAN: MAHSA CALLAHAN MD ECHOCARDIOGRAM REPORT ECHO CHARGES 4 ECHO COMPLETE Date: 11/25/18 CLINICAL DIAGNOSIS: MORSE HX CAD/STENTS/HTN ECHOCARDIOGRAPHIC MEASUREMENTS (adult normal given) AC root (d.<3.7cm) 2.7 cm LV Septum d (<1.2 cm> 1.2 cm Valve Excursion 1.3 cm LV Septum (systole) 1.6 cm Left Atria (s.<4.0cm> 3.5 cm LVPW d(<1.2cm) 1.6 cm RV (d.<2.3cm) 3.1 cm LVPW (sytole) 1.7 cm LV diastole(<5.6CM) 5.1 cm MV E-F(>70mm/sec) cm LV systole 4.0 cm LVOT Diameter 1.9 cm MV exc.(>10mm) 1.6 cm Est.ejection fraction (50-75%) % DOPPLER: LVIT cm/sec A 77.0 cm/sec E 107 cm/sec LA cm/sec RVSP 17 mmHg LVOT 94 cm/sec AOP1/2T m/s Asc. Ao 121 cm/sec RVOT 110 cm/sec RA cm/sec PA 131 cm/sec AV Gradient Peak 3.82 mmHg AV Mean 2.81 mmHg AV Area 2.1 cm MV Gradient Peak 6.28 mmHg MV Mean 2.18 mmHg MV Area cm COMMENTS: Manager Universal: Yvan MENA Coal Chute Worker: 3 Dr. Sarkar TAPE# PACS Pericardial Effusion N DATE OF SERVICE: 11/25/2018 Adequate 2-D, color-flow and spectral Doppler, and M-mode. Mild LVH. LV internal dimensions are normal. Wall motion is normal. EF is greater than or equal to 55%. Aortic valve is tricuspid. No evidence of stenosis by Doppler interrogation. Left atrium is normal at 3.5 cm. Mitral valve shows no prolapse. Trace MR. Right-sided chambers are grossly normal. Trace TR. ECHOCARDIOGRAM REPORT [id number] EVELYNE KNOTT TRANSINT:[id number] Voice Confirmation ID: [id number] DOCUMENT ID: [id number] MAHSA CALLAHAN MD at Formerly named [facility] CC: [id number] DICTATION DATE: 11/25/18 1310 PRODUCT SAFETY TECHNICAL ASSISTANT: 11/25/18 1845 DIS IN 11/25/18 [place] [id number] [place] [id number]
== END 2018-11-25 18:15 | disposition home or self-care (01) ==
LOC: D.ER 04:05 → D.M2 05:19 → OBSVTIME 05:19 → D.M2 18:15
PROVIDERS: Emergency Medicine; Internal Medicine Interventional Cardiology; ADMIT Emergency Medicine; ATTEND Emergency Medicine
DX: I25.119 Atherosclerotic heart disease of native coronary artery with unspecified angina pectoris (principal); I10 Essential (primary) hypertension; E78.5 Hyperlipidemia, unspecified; I24.9 Acute ischemic heart disease, unspecified

== ENCOUNTER → 2019-09-04 08:41 | Outpatient (CLI) | payer OTHER ==
[2018-11-25 06:11] VITALS: BMI 29.3
== END | disposition home or self-care (01) ==
LOC: D.HCCARDIO 08:41
PROVIDERS: ATTEND Internal Medicine Cardiovascular Disease
DX: I25.10 Atherosclerotic heart disease of native coronary artery without angina pectoris (principal)

== ENCOUNTER 2019-09-12 06:10 | Outpatient (CLI) | payer OTHER ==
[~2019-09-12] VITALS: Ht 170.2 cm; Wt 90.1 kg
--- NOTE | ~2019-09-12 | HEMODYNAMI ---
PATIENT:EVELYNE KNOTT MEDICAL RECORD: [id number] : 57 LOCATION:[facility] ADMISSION DATE: 09/12/19 Generatedon:09/12/20198:37 Patient name: EVELYNE KNOTT Patient #: [id number] SSN: [id number] : 1955 Date of study: 09/12/2019 Page: Of Hemodynamic Procedure Report Patient Data Patient Demographics Procedure consent was obtained First Name: EVELYNE Gender: Male Last Name: NIKOS : 1955 Middle Initial: RAY Age: 63 year(s) Patient #: [id number] Race: SSN: [id number] Additional ID: [id number] Contact details Address: [address] [place] [address] State: [place] City: [place] Zip code: [address] Past Medical History Performed procedures and imaging results Date Procedure Procedure Results Comments 09/04/2019 Stress testing Positive->Intermediate with SPECT MPI risk Allergies: No known allergies Admission Admission Data Admission Date: 09/12/2019 Admission Time: 6:10 Arrival Date: 09/12/2019 Arrival Time: 0:00 Admit Source: Other Insurance Payor: Private health insurance [facility] #: [id number] Height (in.): 67 BSA: 2.02 (m2) Height (cm.): 170.18 BMI: 31.11 (kg/m2) Weight (lbs.): 198.62 Weight (kg.): 90.09 Lab Results Lab Result Date: 09/12/2019 Lab Result Time: 0:00 Biochemistry Name Units Result Min Max BUN mg/dl 17 --(---*)-- 7 18 Creatinine mg/dl 1 --(--*-)-- 0.6 1.3 eGFR ml/min 79.66468 *-(----)-- 90 120 NONAFRICAN CBC Name Units Result Min Max Hematocrit % 46 --(-*--)-- 42 54 Hemoglobin g/dl 15.1 --(-*--)-- 13.5 17.5 Procedure Procedure Types Cath Procedure Diagnostic Procedure C [facility] w/Coronaries Sedation Charges Moderate Sedation up to 15 minutes Procedure Description Procedure Date Procedure Date: 09/12/2019 Procedure Start Time: 8:25 Procedure End Time: 8:36 Procedure Staff Name Function Jayden Sommers MD Performing Physician Shravan Kraus RN Nurse Roxanne Cano RT Monitor Mary Ann Mujica RT Scrub Procedure Data Cath Procedure Fluoroscopy Diagnostic fluoroscopy Total fluoroscopy Time: 1.6 time: 1.6 min min Diagnostic fluoroscopy Total fluoroscopy dose: 570 dose: 570 mGy mGy Contrast Material Contrast Material Type Amount (ml) Isovue 370 62 Entry Location Entry Primary Successful Side Size Upsize Upsize Entry Closure Robbins ccessful Closure Location (Fr) 1 (Fr) 2 (Fr) Remarks Device Remarks Radial Right 6 Fr Mechanical artery Short Compression Estimated blood loss: 5 ml Diagnostic catheters Device Type Used For End Catheter Placement DIAGNOSTIC Tay 110cm Procedure 5Fr catheter ([id number]) Procedure Complications No complications Procedure Medications Medication Administration Route Dosage 0.9% NaCl I.V. 100 ml/hr Oxygen etCO2 Nasal cannula 2 l/min Heparin Flush Bag added to field 2 bags (1000units/500ml NS) Lidocaine 2% added to field 20 Radial Cocktail added to field 1 syringe (Verapamil 2mg/Nitro 400mcg/Heparin 1500units) Benadryl I.V. 50 mg Versed I.V. 2 mg Fentanyl I.V. 100 mcg Hemodynamics Rest BSA: 2.02 (m2) HGB: 15.1 (g/dl) O2 Consumption: Estimated: 236 (ml/min) O2 Consu mption indexed: Estimated:116.83 (ml/min/m) Heart Rate: 69 (bpm) Pressure Samples Time Site Value (mmHg) Purpose Heart Use Rate(bpm) 8:29 LV 121/17,-3 Snapshot 88 Gradients Valve Time Site Site Mean SEP/DFP Peak To Heart Use 1 2 (mmHg) (sec/min) Peak Rate (mmHg) (bpm) Aortic 8:29 LV AO 122 Snapshots Pre Cath Intra NCS Post Cath Vital Signs Time Heart Resp SPO2 etCO2 NIBP (mmHg) Rhythm Pain Sedation Rate (ipm) (%) (mmHg) Status Level (bpm) 8:00:29 70 11 97 47.4 115/83(98) NSR 0 (11) 10(A) , No pain 8:05:15 72 11 98 45.1 123/86(103) NSR 0 (11) 10(A) , No pain 8:09:27 72 12 99 45.9 123/73(104) NSR 0 (11) 10(A) , No pain 8:13:35 72 13 99 42.1 121/78(95) NSR 0 (11) 10(A) , No pain 8:17:43 72 15 99 41.4 126/79(99) NSR 0 (11) 10(A) , No pain 8:21:51 76 10 98 35.4 102/69(87) NSR 0 (11) 9(A) , No pain 8:25:52 74 19 97 45.9 113/74(88) NSR 0 (11) 9(A) , No pain 8:29:52 83 14 97 38.3 81/68(75) NSR 0 (11) 9(A) , No pain 8:34:33 79 10 95 43.6 111/73(88) NSR 0 (11) 10(A) , No pain Medications Time Medication Route Dose Verified Delivered Reason Notes Ef fectiveness by by 7:59:10 0.9% NaCl I.V. 100 Shravan Shravan Per ml/hr Lorigan Lorigan physician RN RN 7:59:19 Oxygen etCO2 2 l/min Shravan Shravan for low 02 Nasal Lorigan Lorigan sats cannula RN RN 7:59:29 Heparin Flush added 2 bags Shravan Shravan used for Bag to Lorigan Lorigan procedure (1000units/500ml field RN RN NS) 7:59:45 Lidocaine 2% added 20ml Shravan Shravan for local to vial Lorigan Lorigan anesthetic field RN RN 7:59:55 Radial Cocktail added 1 Shravan Shravan used for (Verapamil to syringe Lorigan Lorigan procedure 2mg/Nitro field RN RN 400mcg/Heparin 1500units) 8:04:10 Benadryl I.V. 50 mg Shravan Shravan Per Efra Lorigan physician RN RN 8:19:22 Versed I.V. 2 mg Shravan Shravan for Lorigan Lorigan sedation RN RN 8:19:30 Fentanyl I.V. 100 mcg Shravan Shravan for Lorigan Lorigan sedation RN professor of sport management Log Time Note 7:36:33 Informed consent obtained and on chart 7:37:15 Patient allergic to No known allergies 7:40:47 Arrival Date: 09/12/2019 12:00:00 AM 7:40:48 Admit Source: Other 7:40:54 Insurance Payor : Private health insurance 7:41:00 Shravan Kraus RN sent for patient. Start room use. 7:42:00 Diagnostic Cath Status : Elective 7:42:20 Patient Height : 67 inches 7:42:25 Patient Weight : 198.62 lbs 7:43:14 Lab Result : eGFR NONAFRICAN 79.21454 ml/min 7:43:14 Lab Result : BUN 17 mg/dl 7:43:14 Lab Result : Hematocrit 46 % 7:43:14 Lab Result : Creatinine 1 mg/dl 7:43:14 Lab Result : Hemoglobin 15.1 g/dl 7:43:34 Procedure Status Elective Heart Cath (OP). 7:43:36 Time tracking: Regular hours (M-F 7:00 - 5:00) 7:43:41 Plan of Care:Hemodynamics will remain stable., Cardiac rhythm will remain stable., Comfort level will be maintained., Respiratory function will remain adequate., Patient/ family verbilizes understanding of procedure., Procedure tolerated without complication., Recovers from procedure without complications.. 7:43:56 H&P Date Dictated: 08/28/2019 Within 30 days and on chart.. 7:43:57 Pre-procedure instructions explained to patient. 7:43:57 Pre-op teaching completed and patient verbalized understanding. 7:44:02 Lab results completed and on chart. 7:44:21 Stress Test: yes; abnormal INFERIOR WALL 7:45:53 Risk of Mortality: 0.1 7:45:56 Risk of blood transfusion: .1 7:45:58 Risk of FER: .1 7:46:34 Patient received from Pre/Post Procedure Room to CCL 1 Alert and oriented. Tansferred to table in Supine position. 7:46:36 Warm blankets applied, and alma hugger turned on for patient comfort. 7:46:37 Correct patient and procedure confirmed by team. 7:46:37 ECG and BP/O2 sat monitors applied to patient. 7:46:43 Family in patients room. 7:46:45 Patient NPO since Midnight. 7:47:02 Is the patient allergic to Iodine/contrast media? No. 7:47:05 Was the patient premedicated? N/A 7:47:09 Patient diabetic? No. 7:47:11 If diabetic: On Metformin? N/A 7:47:19 Is patient on blood thinner?Yes 7:47:22 ACC The patient was administered the following blood thiners within the last 24 hours: ACCPlavix 7:47:34 IV patent on arrival in left antecubital with 0.9% NaCl at [facility]. 7:47:39 Patient pain scale 0/10 ?. 7:47:46 Alarms reviewed by R. N. 7:47:46 Sharps counted by scrub and verified by R.N. 7:47:58 ----Pre-sedation anethsthesia assessment.---- 7:48:02 Previous problem with sedation/anesthesia? No ? 7:48:03 Snore? Yes 7:48:05 Sleep apnea? No 7:48:06 Deviated septum? No 7:48:07 Opens mouth fully? Yes 7:48:08 Sticks out tongue? Yes 7:48:10 Airway obstruction? No ? 7:48:12 Dentures? No ? 7:48:27 Right Radial & Right Groin area was prepped with chlora-prep and draped in sterile fashion 7:48:55 Use device set Radial Dx or PCI 7:48:56 ACIST Syringe (17334) opened to sterile field. 7:48:57 Medline Cath Pack ([id number]) opened to sterile field. 7:48:57 Bag Decanter (2002) opened to sterile field. 7:48:58 ACIST Hand Control (54986) opened to sterile field. 7:48:59 ACIST Manifold (74841) opened to sterile field. 7:49:02 MBrace Wrist Support ([id number]) opened to sterile field. 7:49:03 NEEDLE Cook 21G 4cm Radial (Y08152) opened to sterile field. 7:49:05 EMERALD Guide Wire (889-726) opened to sterile field. 7:49:05 SHEATH 6FR RAIN (7628974) opened to sterile field. 7:59:10 0.9% NaCl 100 ml/hr I.V. was administered by Shravan Kraus RN; Per physician; Verbal order read back and verified. 7:59:19 Oxygen 2 l/min etCO2 Nasal cannula was administered by Shravan Kraus RN; for low 02 sats; Verbal order read back and verified. 7:59:29 Heparin Flush Bag (1000units/500ml NS) 2 bags added to field was administered by Shravan Kraus RN; used for procedure; Verbal order read back and verified. 7:59:33 Vital chart was started 7:59:45 Lidocaine 2% 20ml vial added to field was administered by Shravan Kraus RN; for local anesthetic; Verbal order read back and verified. 7:59:55 Radial Cocktail (Verapamil 2mg/Nitro 400mcg/Heparin 1500units) 1 syringe added to field was administered by Shravan Kraus RN; used for procedure; Verbal order read back and verified. 8:02:56 Baseline sample Acquired. 8:02:58 Full Disclosure recording started 8:03:02 Rhythm: sinus rhythm 8:04:10 Benadryl 50 mg I.V. was administered by Shravan Kraus RN; Per physician; Verbal order read back and verified. 8:13:45 Physician arrived 8:14:45 2) 60-89 Mildly reduced kidney function, and other findings (as for stage 1) point to kidney disease. 8:14:48 Maximum allowable contrast dose (3.7 X eGFR X 0.75)222 ml. 8:18:55 --------ALL STOP TIME OUT------ 8:18:56 Final Timeout: patient, procedure, and site verified with staff and physician. All members of the team are in agreement. 8:18:58 Right Radial & Right Groin site verified by team. 8:19:01 Fire Safety Assessment: A--An alcohol-based skin anteseptic being used preoperatively., C--Open oxygen or nitrous oxide is being used., D--An ESU, laser, or fiber-optic light is being used. 8:19:05 Physical assessment completed. ASA score P 2 - A patient with mild systemic disease as per Jayden Sommers MD. 8:19:09 Sedation plan: IV Moderate Sedation Medication:Versed, Fentanyl 8:19:22 Versed 2 mg I.V. was administered by Shravan Kraus RN; for sedation; Verbal order read back and verified. 8:19:30 Fentanyl 100 mcg I.V. was administered by Shravan Kraus RN; for sedation; Verbal order read back and verified. 8:25:15 Procedure started. 8:25:31 Local anesthetic to right radial artery with Lidocaine 2% by Jayden Sommers MD.INITIAL ACCESS ONLY 8:27:21 A 6 Fr Short sheath was inserted into the Right Radial artery 8:28:07 A DIAGNOSTIC Tay 110cm 5Fr catheter ([id number]) was advanced over the wire and used for Procedure. 8:28:14 LV gram done using ALEXIS 8::59 Injector settings: Ml/sec: 5, Volume: 15, 8:29:09 LV hemodynamics recorded. 8:29:23 EF : 60 % 8:30:02 RCA angiography performed. 8:30:08 Injector settings: Ml/sec: 3, Volume: 6, 8:30:31 LCA angiography performed. 8:30:34 Injector settings: Ml/sec: 3, Volume: 6, 8:32:24 ACCDominant side:Co-Dominant 8:33:46 Catheter removed. 8:34:16 ZEPHYR REGULAR TR BAND ([id number]) opened to sterile field. 8:34:27 Sheath removed intact; hemostasis achieved with Mechanical Compression to the Right Radial artery. 8:34:30 Procedure ended.(Physican Out) 8:34:54 Fluoroscopy time 01.60 minutes. 8:34:59 Fluoroscopy dose: 570 mGy 8:34:59 Flurop Dose total: 570 8:35:05 Dose Area Product 09441 mGy/cm. 8:35:09 Contrast amount:Isovue 370 62ml. 8:35:12 Maximum allowable dose exceeded? No. 8:35:14 Sharps counted by scrub and verified by R.N. 8:35:17 [place] band inflated with 10cc of air. 8:35:21 Post Procedure Pulses reassessed and unchanged 8:35:24 Post procedure: right dorsailis pedis pulse 2+ Normal; easily identifiable; not easily obliterated. 8:35:28 Post-procedure physical assessment completed. ASA score P 2 - A patient with mild systemic disease as per Jayden Sommers MD. 8:35:31 Post procedure rhythm: unchanged. 8:35:33 Estimated blood loss: 5 ml 8:35:35 Post procedure instruction explained to patient.Patient verbalizes understanding. 8:35:35 Patient needs reinforcement of post procedure teaching. 8:35:52 Procedure type changed to Cath procedure, Diagnostic procedure, LHC, LHC w/Coronaries, Sedation Charges, Moderate Sedation up to 15 minutes 8:36:18 Procedure and supply charges have been captured, reviewed, submitted and are correct. 8:36:23 Procedure Complication : No complications 8:36:25 Vital chart was stopped 8:36:27 [facility] Findings: mild to moderate CAD (<70%) 8:36:31 Operative report dictated upon procedure completion. 8:36:31 See physician's report for complete and final results. 8:36:33 Report given to Pre/Post Procedure Room. 8:36:35 Patient transfered to Pre/Post Procedure Room with Stretcher. 8:36:38 Procedure ended. 8:36:38 Full Disclosure recording stopped 8:36:45 End room use (Document Last) 8:36:55 End room use (Document Last) 8:37:11 End room use (Document Last) Device Usage Item Name Manufacture Quantity Catalog Hospital Part Current Minima l Lot# / Number Charge Number Stock Stock Serial# Code ACIST Acist 1 05895 519193 220689 [id number] 20 Syringe Medical (54854) Systems Inc Medline Medline 1 [id number] 45289 [id number] 5 Cath Pack ([id number]) Bag Microtek 1 700720 38049 337526 5 Decanter Medical Inc. () ACIST Hand Acist 1 12685 819173 610507 327968 5 Control Medical (43324) Systems Inc ACIST Acist 1 88534 486606 629478 157334 5 Manifold Medical (76595) Systems Inc MBrace Advanced 1 [id number] 820593 69908 992078 5 Wrist Vascular Support Dynamics ([id number]) NEEDLE Cook Cook Medical 1 [id number] 220149 862512 891011 5 21G 4cm Radial (F68810) EMERALD Cardinal 1 502455 992714 020484 285307 5 Guide Wire [facility] (597-071) SHEATH 6FR Cardinal 1 4751487 785785 7834320 184186 5 [facility] (3119767) DIAGNOSTIC Terumo 1 40-5023 389525 480289 952635 5 Tay 110cm 5Fr catheter (337145) ZEPHYR Cardinal 1 963482 400517 5599355 216192 5 REGULAR TR Health BAND (188982) Signature Audit [place] Stage Time Signature Unsigned Intra-Procedure 09/12/2019 Roxanne Cano 8:36:55 AM RT(R) Intra-Procedure 09/12/2019 Shravan 8:37:11 AM fEra LUNDBERG Intra-Procedure 09/12/2019 Jayden Sommers MD 8:37:31 AM [facility] [address] [place] [address]
[2019-09-12 06:37] VITALS: BP 137/82; Ht 170.2 cm; Wt 90.1 kg
[2019-09-12 07:05] LABS: BASOPHILS 0.3 % (0-2); EOSINOPHILS 4.8 % (0-7); HEMOGLOBIN 15.1 g/dL (13.5-17.5); IMMATURE GRANULOCYTES 0.1 % (0-5); MCH 28.3 pg (26.0-34.0); MCHC 32.8 g/dL (31.0-37.0); MCV 86.3 fL (80.0-100.0); MEAN PLATELET VOLUME 10.7 fL (7.4-10.4); MONOCYTES 8.8 % (2-11); PLATELET COUNT 265 10x3/uL (130-400); RBC 5.33 10x6/uL (4.20-6.10); RDW 13.2 % (11.5-14.5); WBC 9.8 10x3/uL (4.8-10.8)
[2019-09-12 07:25] LABS: ALT (SGPT) 30 U/L (10-68); CALC OSMOLALITY 279 mosm/kg (275-300); CARBON DIOXIDE 29.6 mmol/L (21.0-32.0); CHLORIDE - SERUM 103 mmol/L (98-107); CHOL - HDL RATIO 2.9 ratio (2.3-4.9); CHOLESTEROL, TOTAL 150 mg/dL (0-200); GLUCOSE 102 mg/dL (74-106); HDL CHOLESTEROL 51 mg/dL (32-96); LDL CHOLESTEROL 87 mg/dL (0-100); LDL-HDL RATIO 1.7 ratio (1.5-3.5); SODIUM 139 mmol/L (136-145); TRIGLYCERIDE 62 mg/dL (30-200); UREA NITROGEN 17 mg/dL (7-18); eGFR NON AFRICAN AMERICAN 80 mL/min (90-120)
--- NOTE | 2019-09-12 08:40 | NUR ---
PT RECEIVED BACK TO ROOM FROM PARK ATTENDANT FOR RECOVERY. PT SLEEPING BUT VERBALLY AROUSABLE. IV PATENT INFUSING VIA L ARM PER ORDERS. PT PLACED ON CARDIAC MONITORS. HR NSR RATE 72, BP 117/78, RR 15, SAT 98 ON ROOM AIR. R ARM/WRIST W ZYPHER BAND AND IMMOBILIZER. NO BLEEDING OR S/S HEMATOMA NOTED. ARM PINK AND WARM AND CAP REFILL BRISK. PT DENIES PAIN OR DISCOMFORT. HE WAS INSTRUCTED NOT TO USE R ARM, HE VERBALIZED UNDERSTANDING. CALL LIGHT IN REACH, FAMILY AT BS
--- NOTE | 2019-09-12 09:00 | NUR ---
PT RESTING COMFORTABLY, DENIES PAIN OR DISCOMFORT. ZBAND AND IMMOBILIZER IN PLACE, NO BLEEDING OR S/S HEMATOMA, CAP REFILL BRISK. HR 68, BP 113/75, SAT 99. CALL LIGHT IN REACH, FAMILY AT BS.
--- NOTE | 2019-09-12 09:40 | NUR ---
PT RESTING COMFORTABLY VISITING W FAMILY. SPRITE GIVEN PER REQUEST. ZBAND IN PLACE NO S/S HEMATOMA. VSS. FAMILY AT BS, CALL LIGHT IN REACH
--- NOTE | 2019-09-12 10:15 | NUR ---
ZBAND AND IMMOBILIZER IN PLACE, 2CC AIR REMOVED W SMALL AMOUNT OF BLEEDING, 4CC AIR REPLACED NO MORE BLEEDING NOTED. VSS. CAP REFILL BRISK. NO S/S HEMATOMA. DR MAN WAS IN ROOM DISCUSSING W PT AND PROCEDURE RESULTS. V/O TO DISCONTINUE PLAVIX, MED LIST UPDATED. CALL LIGHT IN REACH
--- NOTE | 2019-09-12 10:30 | NUR ---
3CC AIR REMOVED FROM Z BAND, NO BLEEDING NOTED. CALL LIGHT IN REACH.
--- NOTE | 2019-09-12 10:45 | NUR ---
4 ADDL CC AIR REMOVED FROM Z BAND, NO BLEEDING OR S/S HEMATOMA NOTED. DISCHARGE INSTRUCTIONS REVIEWED W PT AND , BOTH VERBALIZED UNDERSTANDING. IV REMOVED W CATH INTACT, MONITORS REMOVED. PT UP TO DRESS FOR DISCHARGE.
--- NOTE | 2019-09-12 11:00 | NUR ---
REMAINING AIR AND ZBAND REMOVED. 2X2 AND SM TEGADERM DRESSING APPLIED. IMMOBILIZER REPOSITIONED. PT AMBULATED TO BR, VOIDING W/O DIFFICULITY. 1105 PT DISCHARGED VIA WC TO WAITING IN PRIVATE VEHICLE. PT HAD ALL BELONGINGS AND DISCHARGE PAPERWORK
== END 2019-09-12 11:05 | disposition home or self-care (01) ==
LOC: D.CATH 06:10
PROVIDERS: ATTEND Internal Medicine Cardiovascular Disease
DX: I25.119 Atherosclerotic heart disease of native coronary artery with unspecified angina pectoris (principal); R94.30 Abnormal result of cardiovascular function study, unspecified; E78.5 Hyperlipidemia, unspecified; I10 Essential (primary) hypertension; K21.9 Gastro-esophageal reflux disease without esophagitis

== ENCOUNTER → 2020-10-14 09:37 | Outpatient (CLI) | payer OTHER ==
[2019-09-12 06:37] VITALS: BMI 31.1
== END | disposition home or self-care (01) ==
LOC: D.HCCECHO 09:37
PROVIDERS: ATTEND Internal Medicine Cardiovascular Disease
DX: I25.10 Atherosclerotic heart disease of native coronary artery without angina pectoris (principal)